=== PATIENT | female | born 1980 | race Caucasian/White ===

== ENCOUNTER → 2019-09-24 13:43 | Outpatient (BNVA) | payer SELFPAY | PROVIDERS: Family Provider Family Medicine; Visit Provider Obstetrics & Gynecology | DX: R10.2 Pelvic and perineal pain (principal) | CPT/HCPCS: 76830 ==

== ENCOUNTER 2019-11-05 10:27 | Outpatient (CLI) | payer SELFPAY ==
--- NOTE | 2019-11-05 10:44 | MR_ITS ---
WS: [id number] MRI OF THE PELVIS WITHOUT AND WITH GADOLINIUM ENHANCEMENT INDICATION: Pelvic mass TECHNIQUE: MR of the pelvis without gadolinium enhancement FINDINGS: Comparison ultrasound September 24, 2019 Complex mixed signal right ovarian lesion measuring 4.5 x 3.2 x 3.3 cm AP by transverse by larisa herron. Associated susceptibility artifact due to calcifications. This appears well circumscribed with T1 hyperintensity consistent with macroscopic internal fat. This suppresses on the fat saturation imagi ng. Findings are most consistent with teratoma. Patient increased risk of ovarian torsion due to the teratoma.Mild mass effect on the uterus from the right ovarian lesion. Tiny amount of surrounding fluid. No significant free fluid in the pelvis. Normal-appearing left adne xa and left ovary with normal follicles. Uterus appears normal. Incidental nabothian cysts. MR/MR pelvis wo/w con 05000 IMPRESSION: 1. Heterogeneous right ovarian lesion measuring 4.5 x 3.2 x 3.3 cm with macros copic fat. Susceptibility artifact consistent with calcifications. 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 Patient at increased risk of torsion du e to the teratoma 2. Mild mass effect on the right aspect of the uterus. 3. Left adnexa appears normal. 4. Incidental nabothian cysts in the cervix.
== END 2019-11-05 10:28 | disposition home or self-care (01) ==
LOC: RADWPI 10:30
PROVIDERS: Family Provider Family Medicine; PCP Family Medicine; Visit Provider Obstetrics & Gynecology
DX: N83.8 Other noninflammatory disorders of ovary, fallopian tube and broad ligament (principal); N88.8 Other specified noninflammatory disorders of cervix uteri
CPT/HCPCS: 72197; A9579

== ENCOUNTER → 2019-11-30 08:24 | Outpatient (BNVA) | payer SELFPAY | PROVIDERS: PCP Family Medicine; Visit Provider Internal Medicine | DX: N83.8 Other noninflammatory disorders of ovary, fallopian tube and broad ligament (principal); N39.0 Urinary tract infection, site not specified | CPT/HCPCS: 80053; 81000; 87635 ==

== ENCOUNTER 2019-12-02 15:48 | Observation (INO) | payer SELFPAY ==
[2019-11-24 10:13] VITALS: BMI 21.2
[2019-11-24 10:35] LABS: OR HCG Qualitative Urine Negative (Negative)
--- NOTE | 2019-11-24 10:43 | ANES.PREANE2 ---
Pre-Anesthetic Assessment Pre-Anesthetic Assessment: Height/Weight: Height 1.57 m Weight 52.617 kg Preop Diagnosis: Chronic pelvic pain, right ovarian mass Proposed Procedure: Operation Date: 11/25/19 10:30 Proposed Procedures p Laparoscopic Assist Vaginal Hystectomy 14088 R10.2 N83.8(Not Applicable) - Malick Guerrero MD Social: Social History: Tobacco (1 ppd ) and No alcohol Pack years: 15 Exam: Pre-Anes Outpt Exam: alert, oriented x 3 and clear to auscultation bilaterally Airway: Submandibular: WNL Cervical ROM: WNL MP: 2 Dentition: Chipped (front teeth chipped) Pulmonary: Pulmonary: None reported CV/HEM: CV/HEM: HTN : : None reported Hepatic: Hepatic: None reported GI: GI: None reported Metabolic: Metabolic: None reported Musc/skel: Musc/skel: OA/DJD (wrist, hands, and feet) Neuropsych: Neuropsych: None reported Anesthetic Plan: ASA status: 2 Anesthesia: Anesthesia Evaluation and General PFSH Anesthesia PFSH: Surgical History History of delivery (~2013) Performed with TUbal ligation History of delivery (~2000) History of tubal ligation (~2013) Family History Mother Hypertension Hyperlipidemia Father Hypertension Hyperlipidemia Grandfather Diabetes Other Cancer Denies family history of CAD (coronary artery disease) Clotting disorder Dementia Psychiatric illness Chronic kidney disease (CKD) Suicide Anesthesia complication Bleeding disorder Family history of premature coronary artery disease Lung disease Stroke Social History Smoking and tobacco status: current every day smoker cigarettes Packs smoked per day: 1 Alcohol intake: never Female Reproductive History: Date of last menstrual period: 11/15/19 Data Anesthesia CBC & Chem 7: 11/24/19 10:30 11/24/19 10:30 Other Labs: Laboratory Results - last 48 hr 11/24/19 10:06 Urine HCG, Qual Negative Cardiac Studies: No Data to Display
[2019-11-24 10:46] LABS: Basophils # 0.1 10^3/uL (0.0-0.1); Basophils % 0.6 %; Eosinophils # 0.1 10^3/uL (0.0-0.8); Eosinophils % 1.8 %; Hematocrit 41.7 % (37.0-47.0); Hemoglobin 13.5 g/dL (11.5-15.3); Lymphocytes % 25.1 %; Mean Corpuscular HGB Conc 32.4 g/dL (30.0-36.0); Mean Corpuscular Hemoglobin 31.7 pg (28.0-34.0); Mean Corpuscular Volume 97.9 fL (81-99); Mean Platelet Volume 10.4 fL (7.4-10.4); Monocytes # 0.5 10^3/uL (0.2-0.9); Neutrophils # 5.24 10^3/uL (1.8-7.7); Nucleated Red Blood Cells % 0 %; Platelet Count 221 10^3/cmm (130-400); Red Blood Count 4.26 10^6/uL (4.1-5.3); Red Cell Distribution Width 13.7 % (12.1-15.1); White Blood Count 7.9 10^3/uL (4.0-10.0)
[2019-11-24 10:54] LABS: Add Urine Microscopic? YES; Bilirubin Urine Neg (NEGATIVE); Blood Urine Neg (Negative); Glucose Urine UA Norm (Normal); Ketones Urine Negative (Negative); Leukocyte Esterase Urine 1+ (Negative); Nitrate Urine Positive (Negative); Protein Urine Neg (Negative); Specific Gravity, Urine 1.015 (1.005-1.030); Urine Appearance SL Hazy (CLEAR); Urine Color Yellow (Yellow); Urobilinogen Urine Norm (Negative)
[2019-11-24 11:03] LABS: Alanine Aminotransferase 9 U/L (0-33); Albumin Level 4.1 g/dL (3.5-5.2); Alkaline Phosphatase 68 IU/L (35-105); Anion Gap 11.6 (5-19); Aspartate Amino Transferase 12 U/L (0-32); Blood Urea Nitrogen 9 mg/dL (6-20); Calcium 8.5 mg/dL (8.5-10.5); Carbon Dioxide 27 mmol/L (22-29); Chloride 101 mmol/L (98-107); Globulin 2.5 g/dL (1.3-4.6); Glomerular Filtration Rate 93.6 mL/min (90-130); Glucose 88 mg/dL (65-115); Osmolality Calculated 275 mOsm/kg (285-295); Potassium 4.6 mmol/L (3.5-5.1); Sodium 135 mmol/L (136-145); Total Bilirubin 0.2 mg/dL (0.15-1.2); Total Protein 6.6 g/dL (6.6-8.7)
[2019-11-24 11:12] LABS: Add Urine Culture? Yes; Bacteria Urine 3+; Mucus Urine 1+; RBC Urine 0-4 /hpf (0-2); WBC Urine 40-55 /hpf (0-5)
--- NOTE | 2019-11-24 13:35 | SUR.PREOP ---
call placed to [facility] regarding this pt's urine results and stated she would print it out and give to dr gavin
--- NOTE | 2019-11-24 13:46 | SUR.PREOP ---
spoke with victoria [facility] and order to do urine culture and patient's sx to be pushed back 1 week,victoria stated she would call pt and scheduling to inform of this spoke with yahaira in lab and stated that urine culture already ordered
[2019-11-24 22:49] LABS: Coronavirus Lab Test PTC Negative
[2019-12-02] VITALS (13 sets, daily range): BP systolic 102–153; BP diastolic 65–102; PULSE 52–90; RESP 15–20; TEMP 36.4–37.2; O2SAT 97–100
[2019-12-02 09:27] LABS: OR HCG Qualitative Urine Negative (Negative)
[2019-12-02] MEDS: sodium chloride 0.9% 1,000 ML 30 ML IV (09:42)
[2019-12-02] MEDS: scopolamine 1.5 Patch 1 PATCH TRANSDERMA (09:43)
[2019-12-02] MEDS: atenolol 50 mg Tablet PO (09:57)
--- NOTE | 2019-12-02 10:55 | P.ANESUD_ITS ---
Pre-Anesthetic Update Pre-Anesthetic Assessment: Date of Surgery/Procedure: 12/02/19 Preop Cari gnosis: Chronic pelvic pain, right ovarian mass Proposed Procedure: Operation Date: 12/02/19 10:45 Proposed Procedures p Laparoscopic Assist Vaginal Hystectomy 97012 R10.2 N83.8(Not Applicable) - Malick Guerrero MD Any changes to Pre-Anesthetic Assessment?: No Last Intake: Intake Last Liquid Date 12/01/19 Last Liquid Time 22:00 Last Solid Date 12/01/19 Last Solid Time 22:00 Labs Last 48hrs: Laboratory Results - last 48 hr 12/02/19 09:25 Urine HCG, Qual Negative Vitals: Temperature 97.6 F 12/02/19 09:28 Temperature Source Temporal Artery S can 12/02/19 09:28 Pulse Rate 90 12/02/19 09:28 Respiratory Rate 18 12/02/19 09:28 Blood Pressure 116/77 12/02/19 10:17 Blood Pressure Wen n 90 12/02/19 10:17 Pulse Oximetry 100 12/02/19 09:28 Oxygen Delivery Me thod 12/02/19 09:30 Exam: Pre-Anes Outpt Exam: alert, oriented x 3, clear to auscultation bilaterally and regular rate & rhythm Other Pertinent Information: Other Pertinent Information: took atenolol this morning Cardiac Studies: No Data to Display
--- NOTE | 2019-12-02 11:09 | W.PM.OPSUD ---
Surgery/Procedure H&P Update DATE OF PROCEDURE: December 02, 2019 DATE H&P PERFORMED: 11/23/19 H&P UPDATE INFORMATION: I have reviewed H&P completed within last 30 days, I have examined patient prior to procedure and No changes to prior documentation PREOP DIAGNOSIS: Chronic pelvic pain, right ovarian mass PLANNED PROCEDURE: Operation Date: 12/02/19 10:45 Proposed Procedures p Laparoscopic Assist Vaginal Hystectomy 62451 R10.2 N83.8(Not Applicable) - Malick Guerrero MD
[2019-12-02] MEDS: ceFOXitin 2,000 MG in sodium chloride 0.9% (plus) 50 ML 100 MG IV (13:25)
[2019-12-02] MEDS: estrogens Conjugated Cream 30 gm 1 APPLIC VAGINAL (15:39)
--- NOTE | 2019-12-02 15:44 | PM.OP ---
Operative Report Date of procedure: December 02, 2019 Pre-op Diagnosis: Chronic pelvic pain, right ovarian mass Post-op diagnosis: same Procedure Done: Laparoscopic assisted vaginal hysterectomy with right oophorectomy. Lysis of adhesions. Cystoscopy Specimens removed/disposition: Right ovary and uterus Surgeon: Malick Guerrero Anesthesia: General Estimated blood loss (mL): 200 IV fluids (mL): 1,300 Urine output (mL): 200 Complications: None Findings: Pelvic adhesions and right ovarian mass Condition: stable Disposition: PACU Brief History: 39-year-old female with history of chronic pelvic pain unresponsive to medical management with a right ovarian mass, and history of endometriosis. Procedure: After discussing informed consent again, the patient was taken to the operating room where general anesthesia was administered. She was placed in the dorsal lithotomy position in low stirrups and prepped and draped in sterile fashion. Pre-Procedure Time-Out verifying the correct patient identity, correct procedure verified with consent, correct site and side, correct patient position, availability of correct implants and any special equipment or requirements was performed and acknowledge by the OR team. After the initial preparation, the procedure commenced at the vagina. With a Bookwalter vaginal retractor was place to visualize the cervix; the anterior and posterior lips of the cervix were separately grasped and clamped with ana tooth tenaculum. The cervix was then dilated to a #6 hegar dilator and a uterine manipulator within the uterine cavity for manipulation purposes being careful not to puncture the uterus. A Villalta catheter was placed in the bladder. Attention was then turned to the abdomen. The umbilical region was infiltrated with 0.5% Marcaine with epinephrine. Following infiltration with Marcaine, an intraumbilical incision was made and the Verres needle was gently advanced taking care to feel for the typical sensation of penetrating the peritoneum. With CO2 infiltration, an opening pressure of 5 mmHg was noted, and following this, a pneumoperitoneum of 12 mmHg was created. A 5 mm Optiview trocar was then passed through the same incision under direct visualization. Trocar was removed and the laparoscope was then inserted through the trocar sleeve. Visualization of the peritoneal cavity was then obtained and a brief inspection did not reveal any signs of complications from entry. Under direct observation, a second incision was made 3 cm above the symphysis pubis, and a 5 mm trocar and sleeve were admitted into the abdomen under direct, laparoscopic visualization, 5mm flank ports were then placed laterally on left sides taking care to respect anatomical landmarks and vessels without complication. Once the placement of the ports was complete, the actual laparoscopic procedure began. Beginning on the right side and distally along the length of the fallopian tube, the mesosalpinx was exposed by lifting the tube and ovary up towards the anterior abdominal wall. The mesosalpinx was then sequentially, clamped, ligated, and cut using the Enseal device working alongside the length of the tube and towards the cornua. Once the level of the cornua was reached the tube was cut. Attention was then turned to the other side. The same process was repeated on the left, sequentially clamping, sealing and cutting the mesosalpinx being sure to not injure the adjacent ovarian tissue or other surrounding structures. The round ligament was then clamped, sealed/ligated and cut with the Enseal device. Following this, the anterior leaf of the broad ligament was then taken down on the left side, dissecting down towards the peritoneal reflection at the base of the bladder and adjacent to the cervix. The same process was then repeated on the left side such that both sides met and the anterior leaflet had been appropriately skeletonized. To ensure excellent hemostasis prior to further manipulation, the pedicles of the cardinal ligament was then clamped sealed/ligated and divided on each side using the Enseal device. Attention was then turned to the vaginal aspect of the surgery. The Villalta catheter was clamped. A Bookwalter vaginal retractor was placed in the vagina and the uterine manipulator was removed. The tenaculum was repositioned anteriorly and posteriorly. A circumferential incision was made at the cervical vaginal reflection using cautery. This was undermined first anteriorly and a colpotomy made without difficulty. This was then repeated posteriorly and a similar colpotomy made. Christopher retractors were then placed into each of these incisions. Beginning first on the patient's left, the uterosacral and cardinal ligament was clamped, sealed, divided, and suture ligated. Two bites were required to reach the previous dissection margin of the left side. The same process was then repeated on the patient's right hand side, at which point, the specimen was completely freed. Once the sutures had been placed and the pedicles secured, the uterus along with both tubes and right ovary were removed transvaginally without difficulty. All pedicles were inspected and hemostasis was confirmed. The vaginal vault was then oversewn with a running locking Vicryl suture, securing first the posterior edge of the cuff followed by the anterior edge. Good hemostasis was obtained. Two [id number] sutures were then placed across the vaginal vault to close it. The patient was given IV indigo carmine. Once these had been tied off, all sutures were trimmed; a wet sponge was placed in the vagina to pack it off while attention was again turned back to the abdomen. All instruments were removed from the vagina at this time. Then the Villalta catheter was removed and cystoscope was inserted. The bladder was filled with sterile water. Complete evaluation of the bladder mucosa was performed noting no lacerations, dimpling, tears, bleeding of the mucosa or muscular layers. Both ureteral orifices were identified. Prompt excretion of urine from both ureteral orifices was noted. Cystoscope was withdrawn. Villalta catheter was then placed yielding clear blue/hu urine. Using the laparoscopic irrigation device, the abdomen was carefully irrigated and inspected to ensure complete hemostasis. Once the entire abdomen was inspected, the water was suctioned and the instruments carefully removed. The ports were then removed under direct visualization being sure to note hemostasis of the port sites on removal. The incisions were then closed with interrupted Monocryl sutures and Dermabond. The patient tolerated the procedure well, anesthesia reversed, and the patient was taken to the recovery room in stable condition. All sponges, instruments, and sharps were counted and correct x 3.
[2019-12-02] MEDS: fentaNYL 50 mcg/mL INJ 2mL IVP ×3 (16:00→18:11)
[2019-12-02] MEDS: morphine 4 mg/mL SDV 1 mL 2 MG IVP (16:12)
--- NOTE | 2019-12-02 16:20 | PM.PACU ---
PACU note Post-Anesthesia Exam: awake and vital signs stable Disposition: admitted
[2019-12-02] MEDS: dextrose 5%-lactated ringers 1,000 ML 125 ML IV (17:19)
[2019-12-02] MEDS: ketorolac 30 mg/mL INJ IVP ×2 (17:19→22:15)
[2019-12-03 00:16] VITALS: RESP 16
[2019-12-03] MEDS: fentaNYL 50 mcg/mL INJ 2mL IVP (00:16)
[2019-12-03 05:00] VITALS: BP 123/72; PULSE 81; RESP 16; TEMP 37.2; O2SAT 96
[2019-12-03 06:00] VITALS: PULSE 90; RESP 18; O2SAT 97
[2019-12-03 06:21] LABS: Hematocrit 25.7 % (37.0-47.0); Hemoglobin 8.2 g/dL (11.5-15.3); Mean Corpuscular HGB Conc 31.9 g/dL (30.0-36.0); Mean Corpuscular Hemoglobin 31.3 pg (28.0-34.0); Mean Corpuscular Volume 98.1 fL (81-99); Mean Platelet Volume 11.3 fL (7.4-10.4); Platelet Count 336 10^3/cmm (130-400); Red Blood Count 2.62 10^6/uL (4.1-5.3); Red Cell Distribution Width 13.6 % (12.1-15.1); White Blood Count 16.3 10^3/uL (4.0-10.0)
[2019-12-03] MEDS: docusate sodium 100 mg Capsule PO (08:12)
[2019-12-03] MEDS: HYDROcodone-acetaminophen 5-325 mg Tablet PO (08:12)
--- NOTE | 2019-12-03 08:19 | ANE.PACU2 ---
Inpatient post-anesthesia follow up: Airway intact: Yes Vital signs: Temperature 99.0 F Pulse Rate 90 Respiratory Rate 18 Blood Pressure 123/72 Pulse Oximetry 97 Oxygen Delivery Me thod Room Air Oxygen Flow Rate Fraction of Inspir ed Oxygen Hydration adequate: Yes Nausea and vomiting: No Pain level: 5 Mental status: Baseline
[2019-12-03 10:32] VITALS: BP 122/70; PULSE 76; RESP 15
--- NOTE | 2019-12-03 12:31 | P.DS_ITS ---
Discharge Providers CAMERA REPAIRMAN Date of Admission: 12/02/19 15:48 Date of Discharge: 12/03/19 Attending Provider at Admission: Malick Guerrero MD Attending Provider at Discharge: Malick Guerrero MD Primary Care Provider: Chance Cota Reason for Visit Reason for Visit: lap assist vaginal hysterctomy Hospital Course Hospital Course: 39 year old female with a history of chronic pelvic pain and endometriosis unresponsive to medical management. A laparoscopic Assisted vaginal Hysterectomy was performed without complications. Overnight observation uneventful. She is afebrile hemodynamically stable. Tolerating diet well. Ambulating without difficulty. Postop precautions given. Physical Exam Narrative: EXAM NARRATIVE: GA: Alert and oriented ?3. HEENT: WNL. Heart: Regular rate and rhythm. Lungs: Clear to auscultation bilaterally. Abdomen: Bowel sounds present, nontender, minimal tenderness, incision clean and dry, no redness, pain or edema. AWS SOLUTION ARCHITECT: No bleeding. Extremities: No edema, no cyanosis, no calves pain. Urinary Catheter Management^: Villalta: Cath Placed During This Visit: yes, but has since been removed by the nurse Reason for Continuing Indwelling Catheter: Decision to DC Catheter Urinary Catheter Date of Insertion: 12/02/19 Urinary Catheter Time of Insertion: 13:30 Date Urinary Catheter Removed: 12/03/19 Time Urinary Catheter Discontinued: 08:05 Discharge Data Data Completed and Pending: Pending at discharge Category Date Time Status ES surgery / GI i mages Routine Exams 12/02/19 13:01 Taken Pathology: Surgic al [PTH] Routine Pth 12/02/19 16:01 Received Labs from last 24 hours 12/03/19 05:10 WBC 16.3 H RBC 2.62 L Hgb 8.2 L Hct 25.7 L MCV 98.1 MCH 31.3 MCHC 31.9 RDW 13.6 Plt Count 336 MPV 11.3 H Vitals: Last Vital Signs Temp 99.0 F 12/03/19 05:00 Pulse 76 12/03/19 10:32 Resp 15 12/03/19 10:32 BP 122/70 12/03/19 10:32 Pulse Ox 97 12/03/19 06:00 Discharge Plan Discharge Patient Disposition: Home Condition: Stable Prescriptions: [place] 5-325 mg tablet 1 tab PO Q4H PRN (Reason: pain) Qty: 30 RF: 0 ferrous sulfate 325 mg (65 mg iron) tablet 325 mg PO BID Qty: 60 RF: 0 Continued ibuprofen 800 mg tablet 800 mg PO Q6H PRN (Reason: Pain) RF: 0 atenolol 50 mg tablet 50 mg PO DAILY RF: 0 tramadol 50 mg tablet 50 mg PO Q6H PRN (Reason: Pain) RF: 0 Discharge Orders: Discharge Order (Routine); Ordered 12/03/19 Ordered By: Malick Guerrero Referrals: Malick Guerrero MD [Physician] - 2 weeks Discharge Diet: As Directed Discharge Activity: Increase activity as tolerated Patient Instructions: Laparoscopically Assisted Vaginal Hysterectomy (DC), OB Discharge Report, OB Laproscopic Surgery - [facility], OB Anesthesia Instructions, OB Food/Drug Interaction Guide Activity Restrictions/Additional Instructions: Pelvic rest for 6 weeks (no sex, no tampons, no vaginal douches). Return to the emergency room if any fever, increased bleeding or pain. 1. Please call [facility] [place] [facility] on next working day to make your post-operative appointment in 2 weeks. 2. Please stay home until you come back to the clinic on first post-operative check up. 3. Please follow instructions on your medications CAREFULLY. 4. If you have abdominal incision, do not cover it unless dressing is necessary because of drainage. OK to shower, but avoid bath. Leave steri-strips until they fall off. If they are still on one week after surgery, you may remove them. 5. If you had vaginal surgery, your doctor may instuct you to take SITZ bath. 6. Yellow, blood tinged odorous vaginal discharge is usually normal after hyste rectomy or vaginal surgeries. 7. No sexual intercourse, tampons, or douches until you are completely released from the post-operative care. 8. Avoid constipation by eating right and maybe using some Metamucil or Milk of Magnesia. 9. All presciption refills are given during the working hours. Please do no wait till it runs out. Call the clinic at [phone] before your medication runs out. The clinic will get in touch with your doctor to prescribe medications if necessary. 10. Please remain within 40 mile radius from our hospital because emergencies do happen now and then during the post-operative period. 11. If you have stairs at home, take one step at a time slowly and minimize the number of trips. It helps to stay in one floor for the next few days. No lifting except what you can lift by one hand until you are released from the post-operative care. 12. Driving is discouraged until you are well healed. It may be 3-4 weeks before you feel strong enough to drive. You should be able to turn and look throught the rear window without pain and you should be able to push the brake pedal very hard without pain before you drive. No fast rules, but SAFETY should be your primary concern. DO NOT drive if you are on sedating medications such as narcotics. 13. Call the clinic (during working hours) to make urgent appointment or go to the Emergency room, if any of the following occurs: i. Vaginal bleeding becomes heavy, more than a period. ii. Incision becomes red and sore, or drains pus. iii. Your temperature is over 100.4 or you have chill. iv. IV site becomes red and swollen (a little ``knot?? is usually OK) v. Persistent nausea and vomiting vi. Persistent constipation or diarrhea vii. Rash or allergic reaction to medications. Discharge Attestations CAMERA REPAIRMAN Time Spent in Discharge Care*: greater than 30 min Specific Discharge Activities: Specific discharge activities: educating patient Coding Level of Care Code Acute Energy Scheduler for Michi Bo
[2019-12-03 13:24] VITALS: BP 122/70; PULSE 76; RESP 15
== END 2019-12-03 13:20 | disposition home or self-care (01) ==
LOC: OBGYN 15:49
PROVIDERS: Anesthesiology; Admitting Provider Obstetrics & Gynecology; PCP Family Medicine; Visit Provider Obstetrics & Gynecology
PROC: 0UT9FZZ Resection of Uterus, Via Natural or Artificial Opening With Percutaneous Endoscopic Assistance (ICD-10-PCS; principal; 2019-12-02 10:45)
DX: D27.0 Benign neoplasm of right ovary (principal); K66.0 Peritoneal adhesions (postprocedural) (postinfection); N85.01 Benign endometrial hyperplasia; I10 Essential (primary) hypertension; F17.210 Nicotine dependence, cigarettes, uncomplicated
CPT/HCPCS: 58552; 12345; 36415; 80053; 81001; 81025; 84703; 85025; 85027; 86850; 86900; 87077; 87086; 87186; 87635; 88307; 96360; 96361; 96375; G0378; J0694; J1100; J1885; J2270; J2405; J2550; J2704; J2710; J3010; J3490; J7030

== ENCOUNTER → 2019-12-11 09:25 | Outpatient (BNVA) | payer SELFPAY | PROVIDERS: Family Provider Family Medicine; PCP Family Medicine; Visit Provider Obstetrics & Gynecology | DX: R30.0 Dysuria (principal); R82.2 Biliuria | CPT/HCPCS: 80076; 81000; 85025; 86705; 86706; 86709; 86803; 87340 ==

== ENCOUNTER 2019-12-17 14:25 | Observation (INO) | payer SELFPAY ==
[2019-12-17] VITALS (16 sets, daily range): BP systolic 103–127; BP diastolic 63–85; PULSE 90–118; RESP 14–18; TEMP 36.3–37.2; O2SAT 96–100; BMI 21.7
--- NOTE | 2019-12-17 15:07 | ED_ITS ---
HPI - Recheck/Abnormal Lab/Rx General: Chief Complaint: Recheck/Abnormal Lab/Rx Stated Complaint: LOW BLOOD COUNT 7 Time Seen by Provider: 12/17/19 14:49 History of Present Illness: HPI narrative: 39-year-old female patient presents to the emergency department with low hemoglobin. 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 She was encouraged to come to the hospital for blood transfusion. She reports increased bruising to the lower abdomen, recent hysterectomy 12/02/2019. She reports bruising has increased past 7 days. Reports was seen for follow-up. She continues to have slight vaginal bleeding but is not heavy. Reports only occurs when she wipes. She denies fever chills. She is complaining of significant tiredness and fatigue. MD complaint: abnormal lab Returns today for: called because of abnormal lab/test Associated symptoms: malaise Review of Systems General: Reports: 10 or more systems reviewed and unremarkable except in HPI and below Const: Denies: fever(s), chills or diaphoresis Eyes: Denies: blurry vision or eye redness ENMT: Denies: throat pain, dental pain or disequilibrium Card: Denies: chest pain, palpitations or irregular heart rhythm Resp: Denies: dyspnea, productive cough, non-productive cough or wheezing GI: Reports: abdominal pain; Denies: nausea or vomiting : Reports: difficulty voiding, dribbling, hematuria and vaginal bleeding (Slight per patient); Denies: dysuria Musc: Denies: back pain Skin/Breast: Denies: rash or pruritus Neuro: Denies: headache(s), weakness in extremities or behavioral changes Obinna/Lymph: Denies: easy bruising PFSH ED PFSH: Medical History (Updated 12/17/19 @ 17:10 by MILLA Ayala) Aftercare following surgery of the genitourinary system Surgical History History of delivery (~2013) Performed with TUbal ligation History of delivery (~2000) History of tubal ligation (~2013) Family History Mother Hypertension Hyperlipidemia Father Hypertension Hyperlipidemia Grandfather Diabetes Other Cancer Denies family history of CAD (coronary artery disease) Clotting disorder Dementia Psychiatric illness Chronic kidney disease (CKD) Suicide Anesthesia complication Bleeding disorder Family history of premature coronary artery disease Lung disease Stroke Social History (Updated 12/17/19 @ 13:12 by Terri Maynard RN) Smoking and tobacco status: current every day smoker cigarettes Packs smoked per day: 0.5 Alcohol intake: never Female Reproductive History: Date of last menstrual period: 11/15/19 Physical Exam Const: COMMON NORMALS: no acute distress, patient oriented x3 and alert GENERAL APPEARANCE: cooperative, comfortable, well kempt and frail appearing ORIENTATION/CONSCIOUSNESS: Yes awake, Yes oriented to person and Yes oriented to place HENMT: COMMON NORMALS: normocephalic, Normal external nose present and moist oral mucous membranes HEAD & SCALP: normocephalic NOSE: Normal external nose present Eye: COMMON NORMALS: Equal, round and reactive pupils present and EOMs intact bilaterally GENERAL EYE: appearance normal, both eyes and all related structures PUPIL: Yes Equal, round and reactive pupils present Neck/C-Spine: COMMON NORMALS: full ROM and no lymphadenopathy GENERAL: Yes normal visual inspection and Yes trachea midline CERVICAL SPINE: Yes cervical ROM normal and Yes normal cervical lordosis Lymph: LYMPHATIC: no lymphadenopathy noted Chest: COMMONS NORMALS: normal inspection of the chest Resp: COMMON NORMALS: normal respiratory effort and clear to auscultation bilaterally AUSCULTATION: clear to auscultation bilaterally Cardio: COMMON NORMALS: regular rhythm, S1 normal heart sound present, S2 normal heart sound present and Peripheral pulses 2+ throughout RHYTHM: regular rhythm HEART SOUNDS: S1 normal heart sound present and S2 normal he art sound present PERIPHERAL PULSES: Peripheral pulses 2+ throughout GI: COMMON NORMALS: Soft to palpation INSPECTION: Yes abdominal wall ecchymosis (Lower pubic central area radiating to the pubis mons, continues to the left lower quadrant/flank) and Yes incision (Clean dry and intact, no ecchymosis or drainage) AUSCULTATION: Yes normoactive bowel sounds PALPATION: Yes Soft to palpation and Yes Tenderness to palpation present (GI) Details: LLQ and RLQ : BLADDER/KIDNEY EXAM: Yes CVA tenderness Back/Pelvis: COMMON NORMALS: thoracic and lumbar spine normal to inspection GENERAL BACK: Yes CVA tenderness CVA tenderness: left and Yes ecchymosis (left) Extremity: COMMON NORMALS: normal to inspection and capillary refill normal Neuro: COMMON NORMALS: patient oriented x3 and no focal motor deficits SENSORIUM/ORIENTATION: Yes alert, Yes oriented to person and Yes oriented to place Psych: COMMON NORMALS: mental status grossly normal, Normal thought process present and cooperative APPEARANCE: Yes well kempt ACTIVITY/MOTOR BEHAVIOR: Yes appropriate eye contact THOUGHT PROCESS: Normal thought process present Skin: COMMON NORMALS: no rashes or lesions noted and turgor normal GENERAL SKIN EXAM: no rashes or lesions noted and turgor normal Course ED course: 39-year-old female patient was evaluated in the emergency department due to bruising to the lower abdominal wall with anemia status post hysterectomy on 12/02/2019. CT scan of abdomen pelvis revealed postoperative fluid collection in the pelvis consistent with hematoma/abscess or infected hematoma. Discussion with Dr. Guerrero including serology and CT results discussed. Discussed with patient findings of CT, she agrees to follow-up with Dr. Guerrero for transfusion and OB. Questions were answered. Consultations: Consultation #1: Dr Guerrero, serology results an CT scan abd/pelvis d/w Dr Guerrero - advised for patient to go to OB for 2 UPRBSc, reports probable hematoma in the pelvis. Time: 17:00 Vital Signs: Vital signs: Vital Signs Temperature 97.3 F L 12/17/19 14:28 Pulse Rate 118 H 12/17/19 14:28 Respiratory Rate 18 12/17/19 14:28 Blood Pressure 115/76 12/17/19 14:28 Pulse Oximetry 99 12/17/19 15:14 MDM - Recheck/Abnormal Lab/Rx Lab Data: Labs: Lab Results 12/17/19 12/17/19 12/17/19 Range/Units 14:50 15:00 15:00 WBC 9.7 (4.0-10.0) 10^3/ uL RBC 2.92 L (4.1-5.3) 10^6/u L Hgb 8.6 L (11.5-15.3) g/dL Hct 29.4 L (37.0-47.0) % MCV 100.7 H (81-99) fL MCH 29.5 (28.0-34.0) pg MCHC 29.3 L (30.0-36.0) g/dL RDW 14.9 (12.1-15.1) % Plt Count 537 H (130-400) 10^3/c mm MPV 9.3 (7.4-10.4) fL Neut % (Auto) 81.6 % Lymph % (Auto) 12.0 % Cedar % (Auto) 5.3 % Eos % (Auto) 0.4 % Baso % (Auto) 0.4 % Neut # (Auto) 7.92 H (1.8-7.7) 10^3/u L Lymph # (Auto) 1.2 (0.8-4.8) 10^3/u L Cedar # (Auto) 0.5 (0.2-0.9) 10^3/u L Eos # (Auto) 0.0 (0.0-0.8) 10^3/u L Baso # (Auto) 0.0 (0.0-0.1) 10^3/u L Nucleated RBC % (a uto) 0 % Nucleated RBCs # 0.0 /100WBC PT 14.00 (12.1-14.9) SECO NDS INR 1.05 (0.8-1.2) Sodium (136-145) mmol/L Potassium (3.5-5.1) mmol/L Chloride (98-107) mmol/L Carbon Dioxide (22-29) mmol/L Anion Gap (5-19) BUN (6-20) mg/dL Creatinine (0.5-0.9) mg/dL GFR Calculation (90-130) mL/min Glucose (65-115) mg/dL Calculated Osmolal ity (285-295) mOsm/k g Calcium (8.5-10.5) mg/dL Total Bilirubin (0.15-1.2) mg/dL AST (0-32) U/L ALT (0-33) U/L Alkaline Phosphata se (35-105) IU/L Total Protein (6.6-8.7) g/dL Albumin (3.5-5.2) g/dL Globulin (1.3-4.6) g/dL Lipase (13-60) U/L Urine Color Yellow (Yellow) Urine Appearance Clear (CLEAR) Urine pH 7 (5-7) Ur Specific Gravit y 1.010 (1.005-1.030) Urine Protein Neg (Negative) Urine Glucose (UA) Norm (Normal) Urine Ketones Negative (Negative) Urine Blood 2+ H (Negative) Urine Nitrate Negative (Negative) Urine Bilirubin Neg (Negative) Urine Urobilinogen 4 H (Negative) mg/dL Ur Leukocyte Michelle ase Negative (Negative) Urine RBC 0-4 H (0-2) /hpf Urine WBC None (0-5) /hpf Ur Squamous Epith Cells 0-4 H (0-5) /hpf Amorphous Sediment Not Reportable Urine Bacteria Trace (NONE) /hpf Blood Type Rho(D) Type Antibody Screen 12/17/19 12/17/19 Range/Units 15:00 15:00 WBC (4.0-10.0) 10^3/ uL RBC (4.1-5.3) 10^6/u L Hgb (11.5-15.3) g/dL Hct (37.0-47.0) % MCV (81-99) fL MCH (28.0-34.0) pg MCHC (30.0-36.0) g/dL RDW (12.1-15.1) % Plt Count (130-400) 10^3/c mm MPV (7.4-10.4) fL Neut % (Auto) % Lymph % (Auto) % Cedar % (Auto) % Eos % (Auto) % Baso % (Auto) % Neut # (Auto) (1.8-7.7) 10^3/u L Lymph # (Auto) (0.8-4.8) 10^3/u L Cedar # (Auto) (0.2-0.9) 10^3/u L Eos # (Auto) (0.0-0.8) 10^3/u L Baso # (Auto) (0.0-0.1) 10^3/u L Nucleated RBC % (a uto) % Nucleated RBCs # /100WBC PT (12.1-14.9) SECO NDS INR (0.8-1.2) Sodium 133 L (136-145) mmol/L Potassium 4.1 (3.5-5.1) mmol/L Chloride 97 L (98-107) mmol/L Carbon Dioxide 26 (22-29) mmol/L Anion Gap 14.1 (5-19) BUN 6 (6-20) mg/dL Creatinine 0.5 (0.5-0.9) mg/dL GFR Calculation 138.1 H (90-130) mL/min Glucose 104 (65-115) mg/dL Calculated Osmolal ity 274 L (285-295) mOsm/k g Calcium 9.3 (8.5-10.5) mg/dL Total Bilirubin 0.5 (0.15-1.2) mg/dL AST 10 (0-32) U/L ALT 7 (0-33) U/L Alkaline Phosphata se 131 H (35-105) IU/L Total Protein 7.0 (6.6-8.7) g/dL Albumin 3.7 (3.5-5.2) g/dL Globulin 3.3 (1.3-4.6) g/dL Lipase 11 L (13-60) U/L Urine Color (Yellow) Urine Appearance (CLEAR) Urine pH (5-7) Ur Specific Gravit y (1.005-1.030) Urine Protein (Negative) Urine Glucose (UA) (Normal) Urine Ketones (Negative) Urine Blood (Negative) Urine Nitrate (Negative) Urine Bilirubin (Negative) Urine Urobilinogen (Negative) mg/dL Ur Leukocyte Michelle ase (Negative) Urine RBC (0-2) /hpf Urine WBC (0-5) /hpf Ur Squamous Epith Cells (0-5) /hpf Amorphous Sediment Urine Bacteria (NONE) /hpf Blood Type O Negative Rho(D) Type Negative Antibody Screen Negative Imaging Data^: CT Abd/Pel: Radiologist's impression: [place] [address] CT Scan Report Signed with Addenda Patient: Liberty Briones Unit #: [id number] : 1980 Age/Sex: 39 / F ADM Date: 12/17/19 Loc: ER Room/Bed: Attending Dr: Ordering Provider/Ordering MD: Deb Quinonez Date of Service: 12/17/19 Procedure(s): CT chest abd pel w con* Accession Number(s): [id number] Report Number: [id number]/CT chest abd pel w con* Disregard this report. CT chest was sent twice. Radiation Dose CTDIVOL = (mGy): DLP = 291.1 (mGy-cm) Addendum Dictated By: Jelani Vilchis MD Addendum Signed By: Jelani Vilchis MD Signed Date/Time: 12/17/19 826 Addendum Cosigned By: PROCEDURE INFORMATION: Exam: CT Abdomen And Pelvis With Contrast Exam date and time: 12/17/2019 3:54 PM Age: 39 years old Clinical indication: Abdominal tenderness and other: Bleeding; Dyspnea; Prior surgery; Surgery type: Tubal, hysto, vaginal bleeding, blood in urine; Patient HX: Hyst on dec 01 TECHNIQUE: Imaging protocol: Computed tomography of the abdomen and pelvis with intravenous contrast. Radiation optimization: All CT scans at this facility use at least one of these dose optimization techniques: automated exposure control; mA and/or kV adjustment per patient size (includes targeted exams where dose is matched to clinical indication); or iterative reconstruction. Contrast material: OMNI 300; Contrast volume: 75 ml; Contrast route: INTRAVENOUS (IV); COMPARISON: MR pelvis wo/w con [id number] 11/05/2019 10:54 AM RADIATION DOSE METRICS: Total DLP (mGy-cm): 305.87 FINDINGS: Liver: Normal. No mass. Gallbladder and bile ducts: Normal. No calcified stones. No ductal dilation. Pancreas: Normal. No ductal dilation. Spleen: Normal. No splenomegaly. Adrenals: Normal. No mass. Kidneys and ureters: Normal. No hydronephrosis. Stomach and bowel: Unremarkable. No obstruction. No mucosal thickening. Appendix: No evidence of appendicitis. Intraperitoneal space: Peritoneal fat inflammation in the mid and lower abdomen and pelvis most consistent with peritonitis. Vasculature: Unremarkable. No abdominal aortic aneurysm. Lymph nodes: Unremarkable. No enlarged lymph nodes. Bladder: Unremarkable as visualized. Reproductive: Absent uterus consistent with recent hysterectomy. Bones/joints: Unremarkable. No acute fracture. Soft tissues: 9.3 x 7.5 x 4.5 cm loculated postoperative fluid collection in the pelvis consistent with hematoma and or abscess and/or infected hematoma. CT/CT chest abd pel w con* IMPRESSION: 1. 9.3 x 7.5 x 4.5 cm loculated postoperative fluid collection in the pelvis consistent with hematoma and or abscess and/or infected hematoma. 2. Absent uterus consistent with recent hysterectomy. 3. Peritoneal fat inflammation in the mid and lower abdomen and pelvis most consistent with peritonitis. Radiation Dose CTDIVOL = (mGy): DLP = 305.87 (mGy-cm) Dictated By: Jelani Vilchis MD Signed By: Jelani Vilchis MD Signed Date/Time: 12/17/191653 DD/ 51 Discharge Plan Discharge Patient Disposition: Home Clinical Impression: Abdominal pain in female Anemia Qualifiers: Anemia type: other cause Other causes of anemia: acute posthemorrhagic Qualified Code(s): D62 - Acute posthemorrhagic anemia Condition: Stable Prescriptions: No Action atenolol 50 mg tablet 50 mg PO DAILY RF: 0 tramadol 50 mg tablet 50 mg PO Q6H PRN (Reason: Pain) RF: 0 hydrocodone-acetaminophen 5-325 mg tablet 1 tab PO Q4H PRN (Reason: Pain) RF: 0 alprazolam 0.25 mg tablet 0.125 - 0.25 mg PO TID PRN (Reason: unknown) RF: 0 ferrous sulfate 325 mg (65 mg iron) tablet 65 mg PO BID RF: 0 ibuprofen 200 mg Tablet 600 - 800 mg PO PRN RF: 0 Discharge Orders: Discharge Order (Routine); Ordered 12/17/19 Ordered By: Deb Quinonez Referrals: Chance Cota [Primary Care Provider] - Discharge Diet: Usual diet Discharge Activity: Resume usual activity Patient Instructions: Abdominal Pain (ED), Anemia (ED) Activity Restrictions/Additional Instructions: Here to go to OB and received 2 units of packed red blood cells for your anemia per Dr. Guerrero Return to the emergency department if you develop worsening bruising to the lower abdomen, increased abdominal pain, blood in your stool, feeling of passing out Take it easy when you are at home, follow the postoperative hysterectomy instructions as provided by Dr. Guerrero. Discharge Date/Time: 12/17/19 17:22 Coding Level of Care Code ED [employer] for Chg Fwd Exam Comprehensive
--- NOTE | 2019-12-17 15:14 | CTR_ITS ---
PROCEDURE INFORMATION: Exam: CT Abdomen And Pelvis With Contrast Exam date and time: 12/17/2019 3:54 PM Age: 39 years old Clinical indication: Abdominal tenderness and other: Bleeding; Dyspnea; Prior surgery; Surgery type: Tubal, hysto, vaginal bleeding, blood in urine; Patient HX: Hyst on dec 01 TECHNIQUE: Imaging protocol: Computed tomography of the abdomen and pelvis with intravenous contrast. Radiation optimization: All CT scans at this facility use at least one of these dose optimization techniques: automated exposure control; mA and/or kV adjustment per patient size (includes targeted exams where dose is matched to clinical indication); or iterative reconstruction. Contrast material: OMNI 300; Contrast volume: 75 ml; Contrast route: INTRAVENOUS (IV); COMPARISON: MR pelvis wo/w con [id number] 11/05/2019 10:54 AM RADIATION DOSE METRICS: Total DLP (mGy-cm): 305.87 FINDINGS: Liver: Normal. No mass. Gallbladder and bile ducts: Normal. No calcified stones. No ductal dilation. Pancreas: Normal. No ductal dilation. Spleen: Normal. No splenomegaly. Adrenals: Normal. No mass. Kidneys and ureters: Normal. No hydronephrosis. Stomach and bowel: Unremarkable. No obstruction. No mucosal thickening. Appendix: No evidence of appendicitis. Intraperitoneal space: Peritoneal fat inflammation in the mid and lower abdomen and pelvis most consistent with peritonitis. Vasculature: Unremarkable. No abdominal aortic aneurysm. Lymph nodes: Unremarkable. No enlarged lymph nodes. Bladder: Unremarkable as visualized. Reproductive: Absent uterus consistent with recent hysterectomy. Bones/joints: Unremarkable. No acute fracture. Soft tissues: 9.3 x 7.5 x 4.5 cm loculated postoperative fluid collection in the pelvis consistent with hematoma and or abscess and/or infected hematoma. CT/CT chest abd pel w con* IMPRESSION: 1. 9.3 x 7.5 x 4.5 cm loculated postoperative fluid collection in the pelvis consistent with hematoma and or abscess and/or infected hematoma. 2. Absent uterus consistent with recent hysterectomy. 3. Peritoneal fat inflammation in the mid and lower abdomen and pelvis most consistent with peritonitis. Radiation Dose CTDIVOL = (mGy): DLP = 305.87 (mGy-cm)
[2019-12-17] MEDS: sodium chloride 0.9% 500 ML 999 ML IV (15:17)
[2019-12-17] MEDS: HYDROcodone-acetaminophen 5-325 mg Tablet 1 TAB PO ×2 (15:19→21:44)
[2019-12-17 15:23] LABS: Basophils % 0.4 %; Eosinophils % 0.4 %; Hematocrit 29.4 % (37.0-47.0); Hemoglobin 8.6 g/dL (11.5-15.3); Lymphocytes # 1.2 10^3/uL (0.8-4.8); Mean Corpuscular HGB Conc 29.3 g/dL (30.0-36.0); Mean Corpuscular Hemoglobin 29.5 pg (28.0-34.0); Mean Corpuscular Volume 100.7 fL (81-99); Mean Platelet Volume 9.3 fL (7.4-10.4); Monocytes # 0.5 10^3/uL (0.2-0.9); Monocytes % 5.3 %; Neutrophils # 7.92 10^3/uL (1.8-7.7); Neutrophils % 81.6 %; Nucleated Red Blood Cells % 0 %; Platelet Count 537 10^3/cmm (130-400); Red Blood Count 2.92 10^6/uL (4.1-5.3); Red Cell Distribution Width 14.9 % (12.1-15.1); White Blood Count 9.7 10^3/uL (4.0-10.0)
[2019-12-17 15:35] LABS: Glucose Urine UA Norm (Normal); Protein Urine Neg (Negative); Urine Appearance Clear (CLEAR); Urine Color Yellow (Yellow); pH Urine 7 (5-7)
[2019-12-17 15:36] LABS: Add Urine Microscopic? YES; Bilirubin Urine Neg (Negative); Blood Urine 2+ (Negative); Ketones Urine Negative (Negative); Leukocyte Esterase Urine Negative (Negative); Nitrate Urine Negative (Negative); Urobilinogen Urine 4 mg/dL (Negative)
[2019-12-17 15:37] LABS: Add Urine Culture? No; Bacteria Urine TRACE /hpf; RBC Urine 0-4 /hpf (0-2); Squamous Epithelial Cell Urine 0-4 /hpf (0-5)
[2019-12-17 15:38] LABS: INR 1.05 (0.8-1.2)
[2019-12-17 15:48] LABS: Alanine Aminotransferase 7 U/L (0-33); Albumin Level 3.7 g/dL (3.5-5.2); Alkaline Phosphatase 131 IU/L (35-105); Anion Gap 14.1 (5-19); Aspartate Amino Transferase 10 U/L (0-32); Blood Urea Nitrogen 6 mg/dL (6-20); Calcium 9.3 mg/dL (8.5-10.5); Carbon Dioxide 26 mmol/L (22-29); Chloride 97 mmol/L (98-107); Globulin 3.3 g/dL (1.3-4.6); Glomerular Filtration Rate 138.1 mL/min (90-130); Glucose 104 mg/dL (65-115); Lipase 11 U/L (13-60); Osmolality Calculated 274 mOsm/kg (285-295); Potassium 4.1 mmol/L (3.5-5.1); Sodium 133 mmol/L (136-145); Total Bilirubin 0.5 mg/dL (0.15-1.2)
[2019-12-17] MEDS: iohexol 300 mg/mL 100 mL Btl IV ×2 (16:08→16:09)
--- NOTE | 2019-12-17 20:13 | PC.NURSE ---
RN informed patient that pain medication was available at this time, patient is requesting to wait longer before taking pain medication and will inform this RN when she is ready to take pain medication.
[2019-12-18 00:05] VITALS: BP 103/67; PULSE 86; RESP 15; TEMP 36.8; O2SAT 98
[2019-12-18] MEDS: HYDROcodone-acetaminophen 5-325 mg Tablet 1 TAB PO ×2 (02:41→08:09)
[2019-12-18 04:15] VITALS: BP 114/74; PULSE 98; RESP 16; TEMP 36.9; O2SAT 96
[2019-12-18 04:56] LABS: Basophils % 0.2 %; Eosinophils # 0.1 10^3/uL (0.0-0.8); Eosinophils % 0.9 %; Hematocrit 34.3 % (37.0-47.0); Hemoglobin 10.6 g/dL (11.5-15.3); Lymphocytes # 1.3 10^3/uL (0.8-4.8); Lymphocytes % 14.1 %; Mean Corpuscular HGB Conc 30.9 g/dL (30.0-36.0); Mean Corpuscular Volume 93.7 fL (81-99); Mean Platelet Volume 9.2 fL (7.4-10.4); Monocytes # 0.8 10^3/uL (0.2-0.9); Monocytes % 8.2 %; Neutrophils # 6.97 10^3/uL (1.8-7.7); Neutrophils % 76.3 %; Nucleated Red Blood Cells % 0 %; Platelet Count 461 10^3/cmm (130-400); Red Blood Count 3.66 10^6/uL (4.1-5.3); White Blood Count 9.1 10^3/uL (4.0-10.0)
--- NOTE | 2019-12-18 08:14 | P.DS_ITS ---
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 With tender left lower quadrant pain around ecchymosis site. Hemoglobin on the clinic have been reported at 7. Patient was counseled regarding findings. Blood transfusion was recommended and she was admitted for transfusion of 2 units of packed red blood cells. Patient was performed without complication. Patient refers feeling fine. Pain under control with medication. Physical Exam Narrative: EXAM NARRATIVE: COMMON NORMALS: no acute distress and patient oriented x3 GENERAL APPEARANCE: cooperative, comfortable and well kempt ORIENTATION/CONSCIOUSNESS: Yes awake HENMT: COMMON NORMALS: normocephalic and atraumatic HEAD & SCALP: normal to inspection, normocephalic and atraumatic Eye: COMMON NORMALS: Equal, round and reactive pupils present, EOMs intact bilaterally, conjunctivae normal and no scleral icterus CONJUNCTIVA: Yes conjunctivae normal PUPIL: Yes Equal, round and reactive pupils present Neck/C-Spine: COMMON NORMALS: full ROM and no JVD GENERAL: Yes normal visual inspection Lymph: LYMPHATIC: no lymphadenopathy noted Resp: COMMON NORMALS: normal respiratory effort Cardio: COMMON NORMALS: no JVD, regular rate and regular rhythm RATE: regular rate RHYTHM: regular rhythm GI: COMMON NORMALS: Normal to inspection, nondistended, normoactive bowel sounds present, Soft to palpation, No hepatosplenomegaly present and no masses INSPECTION: Yes abdominal wall ecchymosis (at incision sites LLQ and suprapubic.), No Abdominal wall edema, Yes incision Inspection of incision: healing well and Yes scar PALPATION: Yes Soft to palpation, Yes Tenderness to palpation present (GI) Details: LLQ (incision site) and Yes No hepatosplenomegaly present PERCUSSION: normal to percussion : COMMON NORMALS: Yes no CVA tenderness BLADDER/KIDNEY EXAM: Yes no CVA tenderness EXTERNAL FEMALE EXAM: Yes normal appearance of the urethra, No urethral discharge, No lesion, No tender and Yes other ([place]retha hypermobility) SPECULUM EXAM - VAGINA: Yes vagina atrophic SPECULUM EXAM - CERVIX: Yes Cervix absent BIMANUAL EXAM - VAGINA & UTERUS: Yes uterus absent BIMANUAL EXAM - ADNEXA, OTHER: Yes normal adnexae, No cul-de-sac fullness and No cul-de-sac tenderness RECTO-VAGINAL: no cul-de-sac fullness and no cul-de-sac tenderness Back/Pelvis: COMMON NORMALS: no CVA tenderness Neuro: COMMON NORMALS: patient oriented x3 Psych: APPEARANCE: Yes well kempt Discharge Data Data Completed and Pending: Completed Studies During Hospitalization Category Date Time Status CT chest abd pel w con* Urgent Cat Scan 12/17/19 15:14 Completed Labs from last 24 hours 12/18/19 12/17/19 12/17/19 04:30 15:00 15:00 WBC 9.1 RBC 3.66 L Hgb 10.6 L Hct 34.3 L MCV 93.7 D MCH 29.0 MCHC 30.9 D RDW 16.0 H Plt Count 461 H MPV 9.2 Neut % (Auto) 76.3 Lymph % (Auto) 14.1 [place] % (Auto) 8.2 Eos % (Auto) 0.9 Baso % (Auto) 0.2 Neut # (Auto) 6.97 Lymph # (Auto) 1.3 [place] # (Auto) 0.8 Eos # (Auto) 0.1 Baso # (Auto) 0.0 Nucleated RBC % (a uto) 0 Nucleated RBCs # 0.0 PT INR Sodium 133 L Potassium 4.1 Chloride 97 L Carbon Dioxide 26 Anion Gap 14.1 BUN 6 Creatinine 0.5 GFR Calculation 138.1 H Glucose 104 Calculated Osmolal ity 274 L Calcium 9.3 Total Bilirubin 0.5 AST 10 ALT 7 Alkaline Phosphata se 131 H Total Protein 7.0 Albumin 3.7 Globulin 3.3 Lipase 11 L Urine Color Urine Appearance Urine pH Ur Specific Gravit y Urine Protein Urine Glucose (UA) Urine Ketones Urine Blood Urine Nitrate Urine Bilirubin Urine Urobilinogen Ur Leukocyte Mcihelle ase Urine RBC Urine WBC Ur Squamous Epith Cells Amorphous Sediment Urine Bacteria Blood Type O Negative Rho(D) Type Negative Antibody Screen Negative Crossmatch See Detail 12/17/19 12/17/19 12/17/19 15:00 15:00 14:50 WBC 9.7 RBC 2.92 L Hgb 8.6 L Hct 29.4 L MCV 100.7 H MCH 29.5 MCHC 29.3 L RDW 14.9 Plt Count 537 H MPV 9.3 Neut % (Auto) 81.6 Lymph % (Auto) 12.0 [place] % (Auto) 5.3 Eos % (Auto) 0.4 Baso % (Auto) 0.4 Neut # (Auto) 7.92 H Lymph # (Auto) 1.2 [place] # (Auto) 0.5 Eos # (Auto) 0.0 Baso # (Auto) 0.0 Nucleated RBC % (a uto) 0 Nucleated RBCs # 0.0 PT 14.00 INR 1.05 Sodium Potassium Chloride Carbon Dioxide Anion Gap BUN Creatinine GFR Calculation Glucose Calculated Osmolal ity Calcium Total Bilirubin AST ALT Alkaline Phosphata se Total Protein Albumin Globulin Lipase Urine Color Yellow Urine Appearance Clear Urine pH 7 Ur Specific Gravit y 1.010 Urine Protein Neg Urine Glucose (UA) Norm Urine Ketones Negative Urine Blood 2+ H Urine Nitrate Negative Urine Bilirubin Neg Urine Urobilinogen 4 H Ur Leukocyte Michelle ase Negative Urine RBC 0-4 H Urine WBC None Ur Squamous Epith Cells 0-4 H Amorphous Sediment Not Reportable Urine Bacteria Trace Blood Type Rho(D) Type Antibody Screen Crossmatch Vitals: Last Vital Signs Temp 98.5 F 12/18/19 04:15 Pulse 98 12/18/19 04:15 Resp 16 12/18/19 04:15 BP 114/74 12/18/19 04:15 Pulse Ox 96 12/18/19 04:15 Discharge Plan Discharge Patient Disposition: Home Condition: Stable Prescriptions: [place] 5-325 mg tablet 2 tab PO Q4H PRN (Reason: pain) Qty: 20 RF: 0 ibuprofen 800 mg tablet 800 mg PO TID PRN (Reason: pain) Qty: 60 RF: 0 Continued atenolol 50 mg tablet 50 mg PO DAILY RF: 0 tramadol 50 mg tablet 50 mg PO Q6H PRN (Reason: Pain) RF: 0 alprazolam 0.25 mg tablet 0.125 - 0.25 mg PO TID PRN (Reason: unknown) RF: 0 ferrous sulfate 325 mg (65 mg iron) tablet 65 mg PO BID RF: 0 ibuprofen 200 mg Tablet 600 - 800 mg PO PRN RF: 0 Held hydrocodone-acetaminophen 5-325 mg tablet 1 tab PO Q4H PRN (Reason: Pain) RF: 0 Hold Instructions: Resume on 12/18/19. Discharge Orders: Discharge Order (Routine); Ordered 12/17/19 Ordered By: Deb Quinonez Referrals: Malick Guerrero MD [Physician] - 1 week Chance Cota [Primary Care Provider] - Discharge Diet: Usual diet and Regular Discharge Activity: Resume usual activity and Increase activity as tolerated Patient Instructions: Abdominal Pain (ED), Anemia (ED) Activity Restrictions/Additional Instructions: Here to go to OB and received 2 units of packed red blood cells for your anemia per Dr. Guerrero Return to the emergency department if you develop worsening bruising to the lower abdomen, increased abdominal pain, blood in your stool, feeling of passing out Take it easy when you are at home, follow the postoperative hysterectomy instructions as provided by Dr. Guerrero. Pelvic rest for 6 weeks (no sex, no tampons, no vaginal douches). Return to the emergency room if any fever, increased bleeding or pain. 1. Please call [facility] on next working day to make your appointment in 1 weeks. 2. Please stay home until you come back to the clinic on first post-operative check up. 3. Please follow instructions on your medications CAREFULLY. 4. If you have abdominal incision, do not cover it unless dressing is necessary because of drainage. OK to shower, but avoid bath. Leave steri-strips until they fall off. If they are still on one week after surgery, you may remove them. 5. If you had vaginal surgery, your doctor may instuct you to take SITZ bath. 6. Yellow, blood tinged odorous vaginal discharge is usually normal after hysterectomy or vaginal surgeries. 7. No sexual intercourse, tampons, or douches until you are completely released from the post-operative care. 8. Avoid constipation by eating right and maybe using some Metamucil or Milk of Magnesia. 9. All presciption refills are given during the working hours. Please do no wait till it runs out. Call the clinic at [phone] before your medication runs out. The clinic will get in touch with your doctor to prescribe medications if necessary. 10. Please remain within 40 mile radius from our hospital because emergencies do happen now and then during the post-operative period. 11. If you have stairs at home, take one step at a time slowly and minimize the number of trips. It helps to stay in one floor for the next few days. No lifting except what you can lift by one hand until you are released from the post-operative care. 12. Driving is discouraged until you are well healed. It may be 3-4 weeks before you feel strong enough to drive. You should be able to turn and look throught the rear window without pain and you should be able to push the brake pedal very hard without pain before you drive. No fast rules, but SAFETY should be your primary concern. DO NOT drive if you are on sedating medications such as narcotics. 13. Call the clinic (during working hours) to make urgent appointment or go to the Emergency room, if any of the following occurs: i. Vaginal bleeding becomes heavy, more than a period. ii. Incision becomes red and sore, or drains pus. iii. Your temperature is over 100.4 or you have chill. iv. IV site becomes red and swollen (a little ``knot?? is usually OK) v. Persistent nausea and vomiting vi. Persistent constipation or diarrhea vii. Rash or allergic reaction to medications. 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
[2019-12-18 09:03] VITALS: BP 137/90; PULSE 93; RESP 16; TEMP 36.8; O2SAT 99
[2019-12-18 09:04] VITALS: BP 137/90; PULSE 93; RESP 16; TEMP 36.8; O2SAT 99
--- NOTE | 2019-12-21 07:45 | PC.RESP ---
Smoking Cessation information sent to patient.
== END 2019-12-18 09:23 | disposition home or self-care (01) ==
LOC: ER 17:10 → OBGYN 17:36
PROVIDERS: Admitting Provider Obstetrics & Gynecology; Emergency Provider Nurse Practitioner Family; PCP Family Medicine; Visit Provider Obstetrics & Gynecology
DX: D62 Acute posthemorrhagic anemia (principal); L76.32 Postprocedural hematoma of skin and subcutaneous tissue following other procedure; F17.210 Nicotine dependence, cigarettes, uncomplicated; Z90.710 Acquired absence of both cervix and uterus; Y83.8 Other surgical procedures as the cause of abnormal reaction of the patient, or of later complication, without mention of misadventure at the time of the procedure
CPT/HCPCS: 12345; 36415; 36430; 71260; 74177; 80053; 81001; 83690; 85025; 85610; 86850; 86900; 86920; 99283; G0378; J7040; P9016; Q9967

== ENCOUNTER → 2019-12-23 10:50 | Outpatient (BNVA) | payer SELFPAY | PROVIDERS: PCP Family Medicine; Visit Provider Obstetrics & Gynecology | DX: N83.202 Unspecified ovarian cyst, left side (principal); N94.89 Other specified conditions associated with female genital organs and menstrual cycle; Z90.710 Acquired absence of both cervix and uterus | CPT/HCPCS: 76830; 76856 ==

== ENCOUNTER 2020-06-12 17:12 | Emergency (ER) | payer SELFPAY ==
--- NOTE | 2020-06-12 17:27 | ECG_ITS ---
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 Measurements Intervals [place] Rate: 62 P: 41 WY: 144 QRS: 49 QRSD: 96 T: 47 QT: 393 QTc: 401 Interpretive Statements SINUS RHYTHM POSSIBLE LEFT ATRIAL ENLARGEMENT [-0.1mV P WAVE IN V1/V2] Compared to ECG 05/03/2018 17:55:38 Sinus tachycardia no longer present T-wave abnormality no longer present Electronically Signed On 06-12-2020 22:43:32 CDT by Cristine Recinos M.D. [id number]
--- NOTE | 2020-06-12 17:27 | XRR_ITS ---
PROCEDURE INFORMATION: Exam: XR Chest Exam date and time: 06/12/2020 5:52 PM Age: 40 years old Clinical indication: Cough and dyspnea; Additional info: Dyspnea/cough TECHNIQUE: Imaging protocol: XR of the chest Views: 1 view. COMPARISON: CT chest abd pel w con* 12/17/2019 3:54 PM FINDINGS: Lungs: Unremarkable. No consolidation. Pleural spaces: Unremarkable. No pleural effusion. No pneumothorax. Heart/Mediastinum: Unremarkable. No cardiomegaly. Bones/joints: Unremarkable. XR/XR chest 1V portable [id number] IMPRESSION: No acute findings.
[2020-06-12 17:39] VITALS: BP 158/97; PULSE 67; RESP 15; TEMP 36.9; O2SAT 99; BMI 22.6
--- NOTE | 2020-06-12 17:44 | W.ED.ABDPA2 ---
HPI - Abdominal Pain General: Chief Complaint: Chest Pain Stated Complaint: chest pain, swelling in feet/ankles, headache Time Seen by Provider: 06/12/20 17:32 History of Present Illness: HPI narrative: The patient is a 40-year-old female with past medical history anxiety who comes to the ER complaining of chest pain, headache, and lower extremity swelling. She said it started a couple days ago and kind of improved but today it got worse. She said this morning her feet were very puffy but the swelling has gone down some but she continues to have chest pain. No cardiac history. Associated Symptoms: Denies GI cramping and diarrhea Related Data: Date of Last Menstrual Period: 11/15/19 Review of Systems General: Reports: 10 or more systems reviewed and unremarkable except in HPI and below Const: Denies: fatigue Eyes: Denies: change in vision, blurry vision or eye redness ENMT: Denies: throat pain, swelling of lips/tongue, ear or mastoid pain or nasal congestion Card: Reports: chest pain; Denies: palpitations, irregular heart rhythm, edema, dyspnea on exertion or orthopnea Resp: Denies: dyspnea, productive cough or non-productive cough GI: Denies: abdominal pain, diarrhea or GI cramping : Denies: flank pain, difficulty voiding, urinary frequency or urinary urgency Musc: Denies: neck pain, back pain, extremity pain, joint pain, joint redness, limited range of motion or muscle weakness Skin/Breast: Denies: rash, pruritus, erythema, skin pain or skin tenderness Neuro: Denies: headache(s), numbness in extremities, weakness in extremities, sensory changes, difficulty walking, dizziness, confusion or Slurred speech present Psych: Denies: anxiety or depression Endo: Denies: polyuria All/Imm: Denies: urticaria, throat swelling or tongue swelling PFSH ED PFSH: Medical History (Updated 06/12/20 @ 21:16 by Cisco Connolly MD) Aftercare following surgery of the genitourinary system Surgical History H/O dilation and curettage x1 H/O laparoscopy Diagnostic laparoscopy.?? Lysis of adhesions.?? Fulguration of endometriotic lesions.? per Dr. Guerrero at [facility] 09/25/2017 H/O: hysterectomy Laparoscopic assisted vaginal hysterectomy with right oophorectomy, lysis of adhesions and cystoscopy performed on 12/02/[address] Guerrero at [facility] History of delivery (~2013) Performed with TUbal ligation History of delivery (~2000) History of tubal ligation (~2013) S/P LEEP Family History Mother Hypertension Hyperlipidemia Father Hypertension Hyperlipidemia Grandfather Diabetes Other Cancer Denies family history of CAD (coronary artery disease) Clotting disorder Dementia Psychiatric illness Chronic kidney disease (CKD) Suicide Anesthesia complication Bleeding disorder Family history of premature coronary artery disease Lung disease Stroke Social History Smoking and tobacco status: current every day smoker cigarettes Packs smoked per day: 0.5 Alcohol intake: never Female Reproductive History: Date of last menstrual period: 11/15/19 Physical Exam Const: COMMON NORMALS: no acute distress, average body habitus, patient oriented x3, no limitations, healthy appearing, alert and well nourished GENERAL APPEARANCE: cooperative, comfortable, well kempt, well developed and anxious ORIENTATION/CONSCIOUSNESS: Yes awake, Yes oriented to person, Yes oriented to place and Yes oriented to time HENMT: COMMON NORMALS: normocephalic, external ears normal and Normal external nose present HEAD & SCALP: normal to inspection and normocephalic NOSE: Normal external nose present EXTERNAL EAR: Yes external ears normal MOUTH: Normal oral and palatal mucosa present THROAT: posterior oropharynx normal Eye: COMMON NORMALS: Equal, round and reactive pupils present and EOMs intact bilaterally GENERAL EYE: appearance normal, both eyes and all related structures PUPIL: Yes Equal, round and reactive pupils present Neck/C-Spine: COMMON NORMALS: full ROM, no lymphadenopathy, no meningeal signs and no JVD GENERAL: Yes normal visual inspection Lymph: LYMPHATIC: no lymphadenopathy noted Chest: COMMONS NORMALS: normal inspection of the chest and normal palpation of entire chest wall Resp: COMMON NORMALS: normal respiratory effort, No retractions, No use of accessory muscles, clear to auscultation bilaterally and percussion normal EFFORT & INSPECTION: Yes able to speak in complete sentences AUSCULTATION: clear to auscultation bilaterally PERCUSSION: percussion normal Cardio: COMMON NORMALS: no JVD, regular rate, regular rhythm, S1 normal heart sound present, S2 normal heart sound present and Peripheral pulses 2+ throughout RATE: regular rate RHYTHM: regular rhythm HEART SOUNDS: S1 normal heart sound present and S2 normal heart sound present PERIPHERAL PULSES: Peripheral pulses 2+ throughout GI: COMMON NORMALS: Normal to inspection, nondistended, normoactive bowel sounds present, Soft to palpation, non-tender and no masses INSPECTION: Yes normal to inspection PALPATION: Yes Soft to palpation : COMMON NORMALS: Yes no CVA tenderness BLADDER/KIDNEY EXAM: Yes no CVA tenderness Back/Pelvis: COMMON NORMALS: no CVA tenderness, thoracic and lumbar spine normal to inspection, no thoracic nor lumbar tenderness and thoraco-lumbar ROM normal Extremity: COMMON NORMALS: normal to inspection, full ROM, capillary refill normal, no joint enlargement and no pedal edema GENERAL: Yes normal exam except as noted Neuro: COMMON NORMALS: patient oriented x3, CN's II-XII intact bilaterally, moves all extremities, no focal motor deficits, no sensory deficits noted and gait normal SENSORIUM/ORIENTATION: Yes alert, Yes oriented to person, Yes oriented to place and Yes oriented to time MENINGEAL SIGNS: Yes no meningeal signs Psych: COMMON NORMALS: mental status grossly normal, Normal thought process present, cooperative, normal affect and speech normal APPEARANCE: Yes well kempt ATTITUDE: Yes calm SPEECH: Yes normal speech THOUGHT PROCESS: Normal thought process present Skin: COMMON NORMALS: no rashes or lesions noted GENERAL SKIN EXAM: no rashes or lesions noted Course Vital Signs: Vital signs: Vital Signs Temperature 98.5 F 06/12/20 17:39 Pulse Rate 70 06/12/20 20:33 Respiratory Rate 16 06/12/20 20:33 Blood Pressure 147/96 06/12/20 20:33 Pulse Oximetry 94 06/12/20 20:33 MDM - Abdominal Pain MDM Narrative: Medical decision making narrative: The patient came complaining of atypical chest pain. Likely chest wall. Incidentally she has 1+ pitting edema to her feet and an elevated BNP. Recommended following up with primary care physician later this week and getting a cardiology referral. ER with worsening symptoms. Lab Data: Labs: Lab Results 06/12/20 06/12/20 06/12/20 Range/Units 17:40 17:40 17:40 WBC 7.4 (4.0-10.0) 10^3/ uL RBC 4.56 (4.1-5.3) 10^6/u L Hgb 13.5 (11.5-15.3) g/dL Hct 41.7 (37.0-47.0) % MCV 91.4 (81-99) fL MCH 29.6 (28.0-34.0) pg MCHC 32.4 (30.0-36.0) g/dL RDW 13.2 (12.1-15.1) % Plt Count 243 (130-400) 10^3/c mm MPV 10.7 H (7.4-10.4) fL Neut % (Auto) 71.1 % Lymph % (Auto) 21.7 % [place] % (Auto) 4.2 % Eos % (Auto) 1.9 % Baso % (Auto) 0.7 % Neut # (Auto) 5.29 (1.8-7.7) 10^3/u L Lymph # (Auto) 1.6 (0.8-4.8) 10^3/u L [place] # (Auto) 0.3 (0.2-0.9) 10^3/u L Eos # (Auto) 0.1 (0.0-0.8) 10^3/u L Baso # (Auto) 0.1 (0.0-0.1) 10^3/u L Nucleated RBC % (a uto) 0 % Nucleated RBCs # 0.0 /100WBC D-Dimer (0-0.59) ug/mIFE U Sodium 137 (136-145) mmol/L Potassium 4.2 (3.5-5.1) mmol/L Chloride 104 (98-107) mmol/L Carbon Dioxide 25 (22-29) mmol/L Anion Gap 12.2 (5-19) BUN 10 (6-20) mg/dL Creatinine 0.8 (0.5-0.9) mg/dL GFR Calculation 79.9 L (90-130) mL/min Glucose 84 (65-115) mg/dL Calculated Osmolal ity 282 L (285-295) mOsm/k g Calcium 9.0 (8.5-10.5) mg/dL Total Bilirubin 0.4 (0.15-1.2) mg/dL AST 17 (0-32) U/L ALT 18 (0-33) U/L Alkaline Phosphata se 85 (35-105) IU/L Troponin T Baselin e 6 (0-10) ng/L Troponin T 120 Min [place] (0-10) ng/L Delta Troponin T (0-10) ABS# NT-Pro-B Natriuret Pep (0-125) pg/mL Total Protein 6.4 L (6.6-8.7) g/dL Albumin 4.1 (3.5-5.2) g/dL Globulin 2.3 (1.3-4.6) g/dL HCG, Qual (Negative) Urine Color (Yellow) Urine Appearance (CLEAR) Urine pH (5-7) Ur Specific Gravit y (1.005-1.030) Urine Protein (Negative) Urine Glucose (UA) (Normal) Urine Ketones (Negative) Urine Blood (Negative) Urine Nitrate (Negative) Urine Bilirubin (Negative) Urine Urobilinogen (Negative) mg/dL Ur Leukocyte Michelle ase (Negative) 06/12/20 06/12/20 06/12/20 Range/Units 17:45 17:45 17:48 WBC (4.0-10.0) 10^3/ uL RBC (4.1-5.3) 10^6/u L Hgb (11.5-15.3) g/dL Hct (37.0-47.0) % MCV (81-99) fL MCH (28.0-34.0) pg MCHC (30.0-36.0) g/dL RDW (12.1-15.1) % Plt Count (130-400) 10^3/c mm MPV (7.4-10.4) fL Neut % (Auto) % Lymph % (Auto) % [place] % (Auto) % Eos % (Auto) % Baso % (Auto) % Neut # (Auto) (1.8-7.7) 10^3/u L Lymph # (Auto) (0.8-4.8) 10^3/u L [place] # (Auto) (0.2-0.9) 10^3/u L Eos # (Auto) (0.0-0.8) 10^3/u L Baso # (Auto) (0.0-0.1) 10^3/u L Nucleated RBC % (a uto) % Nucleated RBCs # /100WBC D-Dimer 0.81 H (0-0.59) ug/mIFE U Sodium (136-145) mmol/L Potassium (3.5-5.1) mmol/L Chloride (98-107) mmol/L Carbon Dioxide (22-29) mmol/L Anion Gap (5-19) BUN (6-20) mg/dL Creatinine (0.5-0.9) mg/dL GFR Calculation (90-130) mL/min Glucose (65-115) mg/dL Calculated Osmolal ity (285-295) mOsm/k g Calcium (8.5-10.5) mg/dL Total Bilirubin (0.15-1.2) mg/dL AST (0-32) U/L ALT (0-33) U/L Alkaline Phosphata se (35-105) IU/L Troponin T Baselin e (0-10) ng/L Troponin T 120 Min [place] (0-10) ng/L Delta Troponin T (0-10) ABS# NT-Pro-B Natriuret Pep 1895 H (0-125) pg/mL Total Protein (6.6-8.7) g/dL Albumin (3.5-5.2) g/dL Globulin (1.3-4.6) g/dL HCG, Qual Negative (Negative) Urine Color (Yellow) Urine Appearance (CLEAR) Urine pH (5-7) Ur Specific Gravit y (1.005-1.030) Urine Protein (Negative) Urine Glucose (UA) (Normal) Urine Ketones (Negative) Urine Blood (Negative) Urine Nitrate (Negative) Urine Bilirubin (Negative) Urine Urobilinogen (Negative) mg/dL Ur Leukocyte Michelle ase (Negative) 06/12/20 06/12/20 Range/Units 17:48 19:40 WBC (4.0-10.0) 10^3/ uL RBC (4.1-5.3) 10^6/u L Hgb (11.5-15.3) g/dL Hct (37.0-47.0) % MCV (81-99) fL MCH (28.0-34.0) pg MCHC (30.0-36.0) g/dL RDW (12.1-15.1) % Plt Count (130-400) 10^3/c mm MPV (7.4-10.4) fL Neut % (Auto) % Lymph % (Auto) % [place] % (Auto) % Eos % (Auto) % Baso % (Auto) % Neut # (Auto) (1.8-7.7) 10^3/u L Lymph # (Auto) (0.8-4.8) 10^3/u L [place] # (Auto) (0.2-0.9) 10^3/u L Eos # (Auto) (0.0-0.8) 10^3/u L Baso # (Auto) (0.0-0.1) 10^3/u L Nucleated RBC % (a uto) % Nucleated RBCs # /100WBC D-Dimer (0-0.59) ug/mIFE U Sodium (136-145) mmol/L Potassium (3.5-5.1) mmol/L Chloride (98-107) mmol/L Carbon Dioxide (22-29) mmol/L Anion Gap (5-19) BUN (6-20) mg/dL Creatinine (0.5-0.9) mg/dL GFR Calculation (90-130) mL/min Glucose (65-115) mg/dL Calculated Osmolal ity (285-295) mOsm/k g Calcium (8.5-10.5) mg/dL Total Bilirubin (0.15-1.2) mg/dL AST (0-32) U/L ALT (0-33) U/L Alkaline Phosphata se (35-105) IU/L Troponin T Baselin e (0-10) ng/L Troponin T 120 Min [place] 6.00 (0-10) ng/L Delta Troponin T 0 (0-10) ABS# NT-Pro-B Natriuret Pep (0-125) pg/mL Total Protein (6.6-8.7) g/dL Albumin (3.5-5.2) g/dL Globulin (1.3-4.6) g/dL HCG, Qual (Negative) Urine Color Yellow (Yellow) Urine Appearance Clear (CLEAR) Urine pH 5 (5-7) Ur Specific Gravit y 1.010 (1.005-1.030) Urine Protein Neg (Negative) Urine Glucose (UA) Norm (Normal) Urine Ketones Negative (Negative) Urine Blood Neg (Negative) Urine Nitrate Negative (Negative) Urine Bilirubin Neg (Negative) Urine Urobilinogen Norm (Negative) mg/dL Ur Leukocyte Michelle ase Negative (Negative) Discharge Plan Discharge Patient Disposition: Home Clinical Impression: Atypical chest pain, Elevated brain natriuretic peptide (BNP) level Condition: Stable Prescriptions: No Action atenolol 50 mg tablet 50 mg PO DAILY RF: 0 tramadol 50 mg tablet 50 mg PO Q6H PRN (Reason: Pain) RF: 0 [place] 5-325 mg tablet 1 tab PO Q4H PRN (Reason: pain) 5 Days Qty: 10 RF: 0 alprazolam 0.25 mg tablet 0.125 - 0.25 mg PO TID PRN (Reason: unknown) RF: 0 ibuprofen 800 mg tablet 800 mg PO TID PRN (Reason: pain) Qty: 60 RF: 0 Discharge Orders: Discharge ED (Routine); Ordered 06/12/20 Ordered By: Cisco Connolly Referrals: hCance Cota [Primary Care Provider] - Discharge Diet: Advance as tolerated Discharge Activity: Resume usual activity Patient Instructions: Chest Pain (ED), Opioid Safety Activity Restrictions/Additional Instructions: You have chest pain of unclear cause though it is likely the wall of your chest given your pain. Please take Tylenol to help with this pain. The swelling in your ankles and feet is slightly concerning because your BNP is also elevated. Please follow-up with Dr. Cota sometime this week and get an echocardiogram and referral to a heart doctor as this may be an early sign of heart disease. Return to the ER with worsening symptoms at any time. Coding Level of Care Code ED Learning And Development Consultant for Michi Fwmya Exam Comprehensive
[2020-06-12 18:00] LABS: Basophils # 0.1 10^3/uL (0.0-0.1); Basophils % 0.7 %; Eosinophils # 0.1 10^3/uL (0.0-0.8); Eosinophils % 1.9 %; Hematocrit 41.7 % (37.0-47.0); Hemoglobin 13.5 g/dL (11.5-15.3); Lymphocytes # 1.6 10^3/uL (0.8-4.8); Lymphocytes % 21.7 %; Mean Corpuscular HGB Conc 32.4 g/dL (30.0-36.0); Mean Corpuscular Hemoglobin 29.6 pg (28.0-34.0); Mean Corpuscular Volume 91.4 fL (81-99); Mean Platelet Volume 10.7 fL (7.4-10.4); Monocytes # 0.3 10^3/uL (0.2-0.9); Monocytes % 4.2 %; Neutrophils # 5.29 10^3/uL (1.8-7.7); Neutrophils % 71.1 %; Nucleated Red Blood Cells % 0 %; Platelet Count 243 10^3/cmm (130-400); Red Blood Count 4.56 10^6/uL (4.1-5.3); Red Cell Distribution Width 13.2 % (12.1-15.1); White Blood Count 7.4 10^3/uL (4.0-10.0)
[2020-06-12 18:13] LABS: Troponin(5th) Baseline 6 ng/L (0-10)
[2020-06-12] MEDS: LORazepam 2 mg/mL INJ 1 mL 0.5 MG IVP (18:13)
[2020-06-12] MEDS: aspirin 325 mg Tablet PO (18:13)
[2020-06-12 18:17] LABS: Alanine Aminotransferase 18 U/L (0-33); Albumin Level 4.1 g/dL (3.5-5.2); Alkaline Phosphatase 85 IU/L (35-105); Anion Gap 12.2 (5-19); Aspartate Amino Transferase 17 U/L (0-32); Blood Urea Nitrogen 10 mg/dL (6-20); Carbon Dioxide 25 mmol/L (22-29); Chloride 104 mmol/L (98-107); Globulin 2.3 g/dL (1.3-4.6); Glomerular Filtration Rate 79.9 mL/min (90-130); Glucose 84 mg/dL (65-115); Osmolality Calculated 282 mOsm/kg (285-295); Potassium 4.2 mmol/L (3.5-5.1); Sodium 137 mmol/L (136-145); Total Bilirubin 0.4 mg/dL (0.15-1.2); Total Protein 6.4 g/dL (6.6-8.7)
[2020-06-12] MEDS: sodium chloride 0.9% 1,000 ML 999 ML IV (18:18)
[2020-06-12 18:23] LABS: HCG Qualitative Urine. Negative (Negative)
[2020-06-12 18:39] LABS: D Dimer 0.81 ug/mIFEU (0-0.59)
[2020-06-12 18:43] LABS: NT Pro B Type Natriuretic Pept 1895 pg/mL (0-125)
[2020-06-12 19:01] VITALS: BP 145/94; PULSE 65; RESP 14; O2SAT 95
--- NOTE | 2020-06-12 19:14 | CTR_ITS ---
PROCEDURE INFORMATION: Exam: CT Angiography Chest With Contrast Exam date and time: 06/12/2020 7:38 PM Age: 40 years old Clinical indication: Pain; Chest pressure; Patient HX: C/O cp/pressure w ble swelling; Additional info: R/O pe TECHNIQUE: Imaging protocol: Computed tomographic angiography of the chest with contrast. 3D rendering (Not supervised by radiologist): MIP and/or 3D reconstructed images were created by the technologist. Radiation optimization: All CT scans at this facility use at least one of these dose optimization techniques: automated exposure control; mA and/or kV adjustment per patient size (includes targeted exams where dose is matched to clinical indication); or iterative reconstruction. Contrast material: OMNI 350; Contrast volume: 63 ml; Contrast route: INTRAVENOUS (IV); COMPARISON: CT chest abd pel w con* 12/17/2019 3:54 PM RADIATION DOSE METRICS: Total DLP (mGy-cm): 443.4 FINDINGS: Pulmonary arteries: Normal. No pulmonary emboli. Aorta: Unremarkable. No aortic aneurysm. No aortic dissection. Lungs: Emphysema. Mild atelectasis in the lower lobes. The lungs are otherwise clear. Pleural spaces: Unremarkable. No pneumothorax. No pleural effusion. Heart: Unremarkable. No cardiomegaly. No pericardial effusion. Lymph nodes: Unremarkable. No enlarged lymph nodes. Bones/joints: Unremarkable. No acute fracture. Soft tissues: Unremarkable. CT/CT angio chest PE protcl [id number] IMPRESSION: 1. No evidence for pulmonary embolus or other acute finding. 2. Emphysema. Radiation Dose CTDIVOL = (mGy): DLP = 443.4 (mGy-cm)
--- NOTE | 2020-06-12 19:27 | ECG_ITS ---
[facility] Test Date: 2020-06-12 Pat Name: Liberty Briones Department: Room: Gender: Female Biostatistician: : 1980 Requested By: Maksim Collins Order Number: [id number] Vincent MD: Cristine Recinos M.D. Measurements Intervals [place] Rate: 56 P: 38 MO: 150 QRS: 31 QRSD: 92 T: 28 QT: 421 QTc: 407 Interpretive Statements SINUS BRADYCARDIA Compared to ECG 06/12/2020 17:41:50 Sinus rhythm no longer present Electronically Signed On 06-12-2020 22:53:48 CDT by Cristine Recinos M.D. [id number] f
[2020-06-12 19:36] VITALS: BP 145/94; PULSE 69; RESP 14; O2SAT 95
[2020-06-12 19:54] LABS: Add Urine Microscopic? NO; Bilirubin Urine Neg (Negative); Blood Urine Neg (Negative); Glucose Urine UA Norm (Normal); Ketones Urine Negative (Negative); Leukocyte Esterase Urine Negative (Negative); Nitrate Urine Negative (Negative); Protein Urine Neg (Negative); Urine Appearance Clear (CLEAR); Urine Color Yellow (Yellow); Urobilinogen Urine Norm (Negative); pH Urine 5 (5-7)
[2020-06-12 20:08] LABS: Troponin 5 2HR Delta 0 ABS# (0-10)
[2020-06-12] MEDS: iohexol 350 mg/mL 100 mL Btl IV (20:12)
[2020-06-12 20:33] VITALS: BP 147/96; PULSE 70; RESP 16; O2SAT 94
== END 2020-06-12 21:31 | disposition home or self-care (01) ==
PROVIDERS: Family Medicine; Emergency Provider Family Medicine; PCP Family Medicine
DX: R07.89 Other chest pain (principal); R79.89 Other specified abnormal findings of blood chemistry; F17.210 Nicotine dependence, cigarettes, uncomplicated
CPT/HCPCS: 71045; 71275; 80053; 81003; 81025; 83880; 84484; 85025; 85378; 93005; 96374; 99284; J2060; J7030; Q9967

== ENCOUNTER 2020-09-27 09:20 | Outpatient (CLI) | payer SELFPAY ==
--- NOTE | 2020-09-27 09:30 | USCV_ITS ---
Liberty Briones Age: 40 Gender: F : 1980 Exam Date: 09/27/2020 09:40 Ordering Phys: Bettie Bryan MD ([email or web address]) Technologist: Jhon Liocna [place] [facility] [place]: chest pain BP: 117 / 70 HR: 89 Rhythm: Sinus Technical Quality: Good MEASUREMENTS (Male / Female) Normal Values 2D ECHO LV Diastolic Diameter PLAX 4.5 cm 4.2 - 5.9 / 3.9 - 5.3 cm LV Systolic Diameter PLAX 2.7 cm IVS Diastolic Thickness 0.7 cm 0.6 - 1.0 / 0.6 - 0.9 cm IVS Systolic Thickness 1.1 cm LVPW Diastolic Thickness 0.8 cm 0.6 - 1.0 / 0.6 - 0.9 cm LVPW Systolic Thickness 1.1 cm LVOT Diameter 2.0 cm LV Ejection Fraction 2D Teich 71.5 % LV Ejection Fraction MOD 2C 61.2 % LV Ejection Fraction 2C AL 62.4 % LA Diameter 3.0 cm LA Width 3.1 cm LA Height 4.6 cm RA Width 2.9 cm RA Height 4.0 cm Aorta at Sinotubular Diameter 2.6 cm DOPPLER AV Peak Velocity 141.0 cm/s LVOT Peak Velocity 129.0 cm/s AV Area Cont Eq vti 3.2 cm squared AV Area Cont Eq pk 2.9 cm squared MV Area PHT 5.0 cm squared Mitral E to A Ratio 1.2 MV E' Velocity 58.0 cm/s Mitral E to MV E' Ratio 7.6 Mitral E to LV E' Lateral Ratio 9.5 Mitral E to LV E' Septal Ratio 6.4 TR Peak Velocity 131.0 cm/s TR Peak Gradient 6.9 mmHg TV Peak E Velocity 72.0 cm/s Right Atrial Pressure 3.0 mmHg Pulmonary Artery Systolic Pressu 9.9 mmHg PV Peak Velocity 105.0 cm/s FINDINGS Left Ventricle Normal left ventricular size, systolic function and wall thickness, with no regional wall motion abnormalities. Left ventricular ejection fraction is estimated at 70 %. Normal diastolic function. Right Ventricle Normal right ventricular size and systolic function. RVSP could not be calculated due to incomplete tricuspid regurgitation velocity profile. Right Atrium Normal right atrial size. Right atrial pressure estimated at 3 mmHg. Left Atrium Normal left atrial size. Mitral Valve Structurally normal mitral valve. No mitral valve stenosis. Trace mitral valve regurgitation. Aortic Valve Structurally normal trileaflet aortic valve. No aortic valve stenosis. No aortic valve regurgitation. Tricuspid Valve Structurally normal tricuspid valve. Trace tricuspid valve regurgitation. Pulmonic Valve Pulmonic valve not well visualized. No significant pulmonary valve regurgitation. Pericardium No pericardial effusion. Aorta Normal-sized aortic root. Normal-sized inferior vena cava with normal respiratory variation. CONCLUSIONS 1. Normal left ventricular size, systolic function and wall thickness, with no regional wall motion abnormalities. Left ventricular ejection fraction is estimated at 70 %. Normal diastolic function. 2. Normal right ventricular size and systolic function. 3. No significant valvular abnormality. 4. No prior similar studies to compare. Bettie Bryan MD (Electronically Signed) Final Date: 29 September 2020 17:40 S
== END 2020-09-27 09:21 | disposition home or self-care (01) ==
LOC: RAD 09:21
PROVIDERS: PCP Family Medicine; Visit Provider Internal Medicine Cardiovascular Disease
DX: R00.2 Palpitations (principal); R07.9 Chest pain, unspecified
CPT/HCPCS: 93306

== ENCOUNTER 2023-06-07 13:23 | Emergency (ER) | payer BC, MEDICAID, SELFPAY ==
[2023-06-07 13:25] VITALS: BP 137/88; PULSE 132; RESP 18; TEMP 37.8; O2SAT 99
--- NOTE | 2023-06-07 14:15 | CTR_ITS ---
PROCEDURE INFORMATION: Exam: CT Abdomen And Pelvis With Contrast Exam date and time: 06/07/2023 2:42 PM Age: 43 years old Clinical indication: Abdominal pain; Other: Low abd pain; Prior surgery; Surgery date: <1 month; Surgery type: Bilateral femoral hernia repair 05/03/23; Additional info: Redness/pain/swelling/fever; Recent femoral hernia surgery TECHNIQUE: Imaging protocol: Computed tomography of the abdomen and pelvis with contrast. Radiation optimization: All CT scans at this facility use at least one of these dose optimization techniques: automated exposure control; mA and/or kV adjustment per patient size (includes targeted exams where dose is matched to clinical indication); or iterative reconstruction. Contrast material: OMNI 350; Contrast volume: 80 ml; Contrast route: INTRAVENOUS (IV); COMPARISON: CT chest abdpel w/*[id number] 12/17/2019 3:54 PM RADIATION DOSE METRICS: Total DLP (mGy-cm): 365.29 FINDINGS: Liver: Normal. No mass. Gallbladder and bile ducts: Normal. No calcified stones. No ductal dilation. Pancreas: Normal. No ductal dilation. Spleen: Normal. No splenomegaly. Adrenal glands: Normal. No mass. Kidneys and ureters: Normal. No hydronephrosis. Stomach and bowel: Extensive colonic fecal material suggests constipation. Appendix: No evidence of appendicitis. Intraperitoneal space: Unremarkable. No free air. No significant fluid collection. Vasculature: Unremarkable. No abdominal aortic aneurysm. Lymph nodes: Unremarkable. No enlarged lymph nodes. Urinary bladder: Unremarkable as visualized. Reproductive: Unremarkable as visualized. Bones/joints: Unremarkable. No acute fracture. Soft tissues: There are large bilateral fluid collections in each inguinal region. That on the left measures 6.3 x 5.2 cm in size, on the right 5.1 x 4.8 cm. Each is purely fluid without visible gas. There is inflammatory stranding of the adjacent fat, left greater than right. CT/CT abdomen pelvis w con* [id number] IMPRESSION: Large bilateral inguinal fluid collections. Seroma versus abscess. Correlate clinically.
--- NOTE | 2023-06-07 14:17 | W.ED.ABDPA2 ---
HPI - Abdominal Pain General: Chief Complaint: Fever Stated Complaint: fever, redness around incision Time Seen by Provider: 06/07/23 13:41 Source: patient Mode of arrival: ambulatory Limitations: no limitations History of Present Illness: Patient is a nice 43-year-old female presents to ED today for evaluation and concerns in regards to a possible surgical infection. Patient states she is approximately 5 weeks post bilateral femoral hernia repair by Dr. Torrez in [place]. Patient states she had follow-up with their PA approximately a week ago was having some mild discomfort but otherwise was doing okay. States she was set up for an outpatient CT scan for further evaluation. She states 1-2 days ago she began developing redness/warmth/swelling/and drainage to her left hernia site. She has also had fevers as high as 102.5. She reports difficulty with passing gas and stool and trouble urinating. MD elicited complaint: abdominal pain (surgical infection) Onset (ago): day(s) Pain Consistency: constant Location: Pelvis (L inguinal region) Severity: severe Quality: sharp and burning Radiation: none Migration to: no migration Exacerbating factors: nothing Relieving factors: nothing Context: recent surgery/procedure Associated Symptoms: Reports fever(s) and other (reports trouble passing gas/bowel movements); Denies dysuria, hematochezia, melena, nausea and vomiting Related Data: Patient : No Review of Systems Const: Reports: fever(s); Denies: fatigue or malaise ENMT: Denies: throat pain, odynophagia, nasal discharge, nasal congestion or sinus pain Card: Denies: chest pain Resp: Denies: dyspnea GI: Reports: abdominal pain and other (reports trouble passing gas/bowel movements); Denies: nausea, vomiting, hematochezia or melena : Reports: difficulty voiding; Denies: flank pain, dysuria, urinary frequency, urinary urgency or urinary hesitancy Musc: Denies: neck pain, back pain, extremity pain or joint pain Skin/Breast: Denies: rash Neuro: Denies: headache(s), numbness in extremities, weakness in extremities, sensory changes or dizziness [facility] ED PFSH: Medical History (Updated 06/07/23 @ 15:51 by SATHYA Perry) Aftercare following surgery of the genitourinary system Surgical History S/P LEEP H/O laparoscopy Diagnostic laparoscopy.?? Lysis of adhesions.?? Fulguration of endometriotic lesions.? per Dr. Guerrero at [facility] 09/25/2017 H/O dilation and curettage x1 H/O: hysterectomy Laparoscopic assisted vaginal hysterectomy with right oophorectomy, lysis of adhesions and cystoscopy performed on 12/02/[address] Guerrero at [facility] History of delivery (~2000) History of tubal ligation (~2013) History of delivery (~2013) Performed with TUbal ligation Family History Mother Hypertension Hyperlipidemia Father Hypertension Hyperlipidemia Grandfather Diabetes Other Cancer Denies family history of CAD (coronary artery disease) Clotting disorder Dementia Psychiatric illness Chronic kidney disease (CKD) Suicide Anesthesia complication Bleeding disorder Family history of premature coronary artery disease Lung disease Stroke Social History Smoking and tobacco/nicotine status: current every day tobacco/nicotine user cigarettes Packs smoked per day: 0.5 Alcohol intake: never Substance/Drug Use: never Physical Exam Const: COMMON NORMALS: no acute distress, patient oriented x3, no limitations, alert and well nourished GENERAL APPEARANCE: cooperative NUTRITIONAL APPEARANCE: thin ORIENTATION/CONSCIOUSNESS: Yes awake, Yes oriented to person, Yes oriented to place and Yes oriented to time Eye: COMMON NORMALS: no scleral icterus Resp: COMMON NORMALS: normal respiratory effort and clear to auscultation bilaterally AUSCULTATION: clear to auscultation bilaterally Cardio: COMMON NORMALS: regular rhythm RATE: tachycardic RHYTHM: regular rhythm GI: COMMON NORMALS: No hepatosplenomegaly present PALPATION: Yes Tenderness to palpation present (GI) and Yes No hepatosplenomegaly present OTHER: pt has significant redness/warmth and swelling overlying her L femoral/inguinal hernia site; she is exquisitely tender to palpation here; there is surrounding cellulitic changes Extremity: GENERAL: Yes normal exam except as noted Neuro: DENY COMA SCALE: document GCS findings Deny coma scale eye opening: Spontaneous Mitchell coma scale verbal response: Orientated Deny coma scale motor response: Obey commands Mitchell coma scale total score: 15 COMMON NORMALS: patient oriented x3 SENSORIUM/ORIENTATION: Yes alert, Yes oriented to person, Yes oriented to place and Yes oriented to time Course Vital Signs: Vital signs: Vital Signs Temperature 100.1 F H 06/07/23 13:25 Pulse Rate 132 H 06/07/23 13:25 Respiratory Rate 18 06/07/23 13:25 Blood Pressure 137/88 06/07/23 13:25 Pulse Oximetry 99 06/07/23 13:25 Oxygen Delivery Me thod Room Air 06/07/23 13:25 MDM - Abdominal Pain Medical Decision Making Patient here for concerns of infection regarding her recent hernia surgery site. She arrives with significant redness, warmth, swelling to surgery site. She arrives tachycardic with low-grade fevers here. Fevers have been as high as 102.5 at home. On her blood work she has a white count of 14.7. Her lactate is normal. Her CRP is almost 300. On CT imaging she has bilateral large fluid collections that radiologist stated could be seromas versus abscesses with recommendation to correlate clinically. I have spoke to Dr. David who is utilization review coordinator for Dr. Torrez's group and he is recommending transfer back to them. Spoke to [facility] transfer line and admitting physician will be Dr. Torrez as he will be utilization review coordinator this evening and will consult on patient. She has been started on IV Zosyn and will be made NPO. Medical Records I reviewed the patient's medical records. Lab Data I reviewed the patient's lab results. 06/07/23 14:28 06/07/23 14:28 Labs/Radiology: Radiology Impressions Abdomen/Pelvis CT 06/07/23 14:15 IMPRESSION: Large bilateral inguinal fluid collections. Seroma versus abscess. Correlate clinically. Laboratory Results WBC 14.71 10^3/uL (3.29-11.43) H 06/07/23 14:28 RBC 4.55 10^6/uL (3.85-5.65) 06/07/23 14:28 Hgb 12.70 g/dL (11.27-16.99) 06/07/23 14:28 Hct 38.8 % (36-47) 06/07/23 14:28 MCV 85.3 fl (85-98) 06/07/23 14:28 MCH 27.9 pg (27-33) 06/07/23 14:28 MCHC 32.7 g/dL (30-55) 06/07/23 14: RDW 12.6 % (12.1-15.1) 06/07/23 14: Plt Count 194 10^3/cmm (157-399) 06/07/23 14:28 MPV 11.1 fL (7.4-10.4) H 06/07/23 14: Neut % (Auto) 87.6 % 06/07/23 14: Lymph % (Auto) 5.7 % 06/07/23 14:28 [place] % (Auto) 5.4 % 06/07/23 14:28 Eos % (Auto) 0.1 % 06/07/23 14: Baso % (Auto) 0.3 % 06/07/23 14: Neut # (Auto) 12.89 10^3/uL (1.8-7.7) H 06/07/23 14: Lymph # (Auto) 0.8 10^3/uL (0.8-4.8) 06/07/23 14:28 [place] # (Auto) 0.8 10^3/uL (0.2-0.9) 06/07/23 14: Eos # (Auto) 0.0 10^3/uL (0.0-0.8) 06/07/23 14: Baso # (Auto) 0.0 10^3/uL (0.0-0.1) 06/07/23 14: Nucleated RBC % (auto) 0 % 06/07/23 14: Nucleated RBCs # 0.0 /100WBC 06/07/23 14:28 Sodium 130 mmol/L (136-145) L 06/07/23 14:28 Potassium 3.1 mmol/L (3.5-5.1) L 06/07/23 14:28 Chloride 88 mmol/L (98-107) L 06/07/23 14:28 Carbon Dioxide 27 mmol/L (22-29) 06/07/23 14:28 Anion Gap 18.1 (5-19) 06/07/23 14:28 BUN 12 mg/dL (6-20) 06/07/23 14:28 Creatinine 0.6 mg/dL (0.5-0.9) 06/07/23 14:28 GFR Calculation 109.6 mL/min (90-130) 06/07/23 14:28 Glucose 90 mg/dL (65-115) 06/07/23 14:28 Calculated Osmolality 269 mOsm/kg (285-295) L 06/07/23 14:28 Lactic Acid 1.1 mmol/L (0.5-2.2) 06/07/23 14:28 Calcium 8.8 mg/dL (8.5-10.5) 06/07/23 14:28 Total Bilirubin 0.6 mg/dL (0.15-1.2) 06/07/23 14:28 AST 13 U/L (0-32) 06/07/23 14:28 ALT 7 U/L (0-33) 06/07/23 14:28 Alkaline Phosphatase 101 U/L (35-105) 06/07/23 14:28 C-Reactive Protein 294.3 mg/L (0.0-4.9) H 06/07/23 14:28 Total Protein 7.0 g/dL (6.6-8.7) 06/07/23 14:28 Albumin 3.5 g/dL (3.5-5.2) 06/07/23 14:28 Globulin 3.5 g/dL (1.3-4.6) 06/07/23 14:28 All radiology interpretation(s) finalized by discharge Discharge Plan Discharge Patient Disposition: Xfer Short-Term Hosp Clinical Impression: Surgical site infection, Abdominal wall abscess at site of surgical wound Condition: Stable Coding Level of Care Code ED Assistant Chief Of Police for Michi Bo
[2023-06-07] MEDS: piperacillin-tazobactam 3.375 GM in sodium chloride 0.9% (plus) 50 ML IV (14:38)
[2023-06-07 14:42] LABS: Basophils % 0.3 %; Eosinophils % 0.1 %; Hematocrit 38.8 % (36-47); Lymphocytes # 0.8 10^3/uL (0.8-4.8); Lymphocytes % 5.7 %; Mean Corpuscular HGB Conc 32.7 g/dL (30-55); Mean Corpuscular Hemoglobin 27.9 pg (27-33); Mean Corpuscular Volume 85.3 fl (85-98); Mean Platelet Volume 11.1 fL (7.4-10.4); Monocytes # 0.8 10^3/uL (0.2-0.9); Monocytes % 5.4 %; Neutrophils # 12.89 10^3/uL (1.8-7.7); Neutrophils % 87.6 %; Nucleated Red Blood Cells % 0 %; Platelet Count 194 10^3/cmm (157-399); Red Blood Count 4.55 10^6/uL (3.85-5.65); Red Cell Distribution Width 12.6 % (12.1-15.1); White Blood Count 14.71 10^3/uL (3.29-11.43)
[2023-06-07] MEDS: iohexol 350 mg/mL 500 mL Btl (per mL) IV (14:44)
[2023-06-07 15:02] LABS: Alanine Aminotransferase 7 U/L (0-33); Albumin Level 3.5 g/dL (3.5-5.2); Alkaline Phosphatase 101 U/L (35-105); Aspartate Amino Transferase 13 U/L (0-32); Blood Urea Nitrogen 12 mg/dL (6-20); C Reactive Protein 294.3 mg/L (0.0-4.9); Calcium 8.8 mg/dL (8.5-10.5); Carbon Dioxide 27 mmol/L (22-29); Chloride 88 mmol/L (98-107); Creatinine Clr Calc Pharmacy 94.4853; Globulin 3.5 g/dL (1.3-4.6); Glomerular Filtration Rate 109.6 mL/min (90-130); Glucose 90 mg/dL (65-115); Osmolality Calculated 269 mOsm/kg (285-295); Sodium 130 mmol/L (136-145); Total Bilirubin 0.6 mg/dL (0.15-1.2)
[2023-06-07 15:03] LABS: Lactic Sepsis W/Reflex 1.1 mmol/L (0.5-2.2)
[2023-06-07 15:08] LABS: Anion Gap 18.1 (5-19); Potassium 3.1 mmol/L (3.5-5.1)
[2023-06-07] MEDS: acetaminophen 500 mg Tablet 1000 MG PO (15:11)
[2023-06-07] MEDS: sodium chloride 0.9% 1,000 ML 999 ML IV (15:12)
[2023-06-07 16:13] VITALS: BP 105/63; PULSE 108; RESP 18; O2SAT 94
[2023-06-07] MEDS: potassium chloride ER 20 mEq Tablet 40 MEQ PO (16:24)
[2023-06-07 16:40] LABS: Add Urine Microscopic? NO; Charge for UA Resulting for Rev
[2023-06-07 16:46] LABS: Magnesium 2.2 mg/dL (1.7-2.3)
[2023-06-07] MEDS: fentaNYL 50 mcg/mL INJ 2mL 25 MCG IVP (16:48)
[2023-06-07] MEDS: ondansetron 2 mg/ML SDV 2 mL 4 MG IVP (16:48)
[2023-06-07 16:51] VITALS: BP 120/78; PULSE 115; RESP 16; O2SAT 96
[2023-06-07 16:52] LABS: Bilirubin Urine Neg (Negative); Blood Urine Neg (Negative); Glucose Urine UA Norm (Normal); Ketones Urine 1+ (Negative); Leukocyte Esterase Urine Negative (Negative); Nitrate Urine Negative (Negative); Protein Urine Neg (Negative); Urine Appearance Clear (CLEAR); Urine Color Yellow (Yellow); Urobilinogen Urine Norm (Negative); pH Urine 5 (5-7)
[2023-06-07 17:03] VITALS: BP 113/75; PULSE 107; RESP 18; O2SAT 95
[2023-06-07 17:51] VITALS: BP 106/65; PULSE 100; RESP 16; O2SAT 94
[2023-06-07 19:30] VITALS: BP 98/62; PULSE 88; RESP 18; O2SAT 94
== END 2023-06-07 19:54 | disposition short-term general hospital (02) ==
PROVIDERS: Emergency Provider Physician Assistant
DX: T81.41XA Infection following a procedure, superficial incisional surgical site, initial encounter (principal); Y83.8 Other surgical procedures as the cause of abnormal reaction of the patient, or of later complication, without mention of misadventure at the time of the procedure; F17.210 Nicotine dependence, cigarettes, uncomplicated
CPT/HCPCS: 74177; 80053; 81003; 83605; 83735; 85025; 86140; 87040; 96365; 96366; 96375; 99285; J2405; J2543; J3010; J7030; Q9967

== ENCOUNTER 2023-09-02 12:18 | Outpatient (CLI) | payer BC, MEDICAID, SELFPAY ==
--- NOTE | 2023-09-02 12:45 | USCV_ITS ---
Anselmo Liberty Age: 43 Gender: F : 1980 Exam Date: 09/02/2023 12:58 Ordering Phys: Diaz Minor M.D ([email or web address]) Technologist: MICHAEL Exam Location: [facility] [place] Indication: PRE SYNCOPE Risk Factors: Previous Vascular Surgery: Right Brachial BP: / Left Brachial BP: / Right Left Velocity (cm/s) Spectral Plaque Velocity (cm/s) Spectral Plaque Syst/Diast Broadening Syst/Diast Broadening 125.80/43.60 Prox CCA 91.60 / 25.90 90.30/ 32.50 Mid CCA 115.40/ 44.20 94.40/ 36.80 Distal CCA 101.70/ 40.20 98.20/ 39.50 Prox ICA 72.80 / 30.50 99.60/ 50.20 Mid ICA 109.60/ 46.70 112.80/50.00 Distal ICA 90.80 / 39.40 71.90 ECA 63.90 1.20 ICA/CCA 1.10 Antegrade Vertebral Antegrade 59.30/ 21.00 cm/s 62.70/ 29.40 cm/s Tri Subclavian Tri 142.0 117.1 0 0 FINDINGS Comparison: none available. No significant elevation of systolic or diastolic velocities. Waveforms are normal. Antegrade vertebral arteries. CONCLUSIONS Normal carotid doppler ultrasound. Dr. Courtney Naidu DO (Electronically Signed) Final Date: 02 September 2023 14:09 S
[2023-09-02 13:15] LABS: Chol HDL Ratio 4.54 mg/dL (0.0-4.40); Cholesterol 209 mg/dL (0-200); HDL Cholesterol 46 mg/dL (60-100); LDL Cholesterol Calculated 141 mg/dL (50-129); LDL HDL Ratio 3.07 RATIO (0.00-3.22); Triglycerides 109 mg/dL (0-150)
--- NOTE | 2023-09-02 13:15 | USCV_ITS ---
Liberty Briones Age: 43 Gender: F : 1980 Exam Date: 09/02/2023 13:13 Ordering Phys: Diaz Minor M.D ([email or web address]) Technologist: MICHAEL Exam Location: [facility] [place] Indication: pre syncope BP: 118 / 70 HR: 73 Rhythm: Sinus Technical Quality: Adequate MEASUREMENTS (Male / Female) Normal Values 2D ECHO LV Diastolic Diameter PLAX 3.9 cm 4.2 - 5.9 / 3.9 - 5.3 cm IVS Diastolic Thickness 1.0 cm 0.6 - 1.0 / 0.6 - 0.9 cm IVS Systolic Thickness 1.3 cm LVPW Diastolic Thickness 1.5 cm 0.6 - 1.0 / 0.6 - 0.9 cm LVPW Systolic Thickness 1.6 cm LVOT Diameter 2.0 cm LV Ejection Fraction 2D Teich 60.3 % LV Ejection Fraction MOD 2C 57.8 % LV Ejection Fraction 2C AL 57.1 % LA Diameter 2.5 cm RA Systolic Volume 4C AL 14.5 ml RA Systolic Volume 4C MOD 14.0 ml LA Sys Volume AL 17.4 cm cubed LA Sys Volume Index AL 11.5 cm cubed/m squared Aorta at Sinotubular Diameter 2.0 cm IVC Diameter 1.8 cm M-MODE LA Ao Ratio MM 0.9 AV Cusp Separation MM 1.1 cm DOPPLER AV Peak Velocity 125.0 cm/s LVOT Peak Velocity 113.0 cm/s AV Area Cont Eq vti 2.7 cm squared AV Area Cont Eq pk 2.7 cm squared MV Peak Velocity 92.0 cm/s MV Area PHT 5.4 cm squared Mitral E to A Ratio 1.1 TR Peak Velocity 155.0 cm/s TR Peak Gradient 9.6 mmHg TR Mean Velocity 134.0 cm/s TR Mean Gradient 7.3 mmHg TR Velocity Time Integral 46.8 cm TV Peak E Velocity 72.0 cm/s Right Atrial Pressure 3.0 mmHg Pulmonary Artery Systolic Pressu 12.6 mmHg PV Peak Velocity 90.0 cm/s RV Ejection Time 0.3 s FINDINGS Left Ventricle Left ventricle is normal size. LV systolic function is normal with EF of 55-60%. No regional wall motion abnormalities are seen. Right Ventricle Normal in size and function Right Atrium Normal in size Left Atrium Normal in size Mitral Valve Structurally normal mitral valve. Trace mitral regurgitation. Aortic Valve Structurally normal aortic valve. No significant stenosis or regurgitation Tricuspid Valve Mild tricuspid regurgitation. Insufficient TR jet to calculate RVSP. Pulmonic Valve Not well visualized Pericardium Normal Aorta Normal in size IVC Appears to be normal CONCLUSIONS LV systolic function is normal with EF of 55-60% Trace mitral regurgitation Mild tricuspid regurgitation Compared to prior echocardiogram from 2020, no significant changes are seen Diaz Minor MD (Electronically Signed) Final Date: 13 September 2023 19:32 S
== END 2023-09-02 12:19 | disposition home or self-care (01) ==
LOC: RAD 12:20
PROVIDERS: Visit Provider Internal Medicine
DX: R55 Syncope and collapse (principal); R07.9 Chest pain, unspecified; R06.02 Shortness of breath; E78.00 Pure hypercholesterolemia, unspecified
CPT/HCPCS: 36415; 80061; 93306; 93880

== ENCOUNTER 2024-02-12 14:48 | Emergency (ER) | payer BC, MEDICAID, SELFPAY ==
--- NOTE | 2024-02-12 14:51 | ECG_ITS ---
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 Measurements Intervals [place] Rate: 90 P: 61 DC: 130 QRS: 63 QRSD: 95 T: 49 QT: 342 QTc: 419 Interpretive Statements SINUS RHYTHM POSSIBLE LEFT ATRIAL ENLARGEMENT [-0.1mV P-WAVE IN V1/V2] MODERATE ST DEPRESSION [0.05+ mV ST DEPRESSION] Compared to ECG 06/12/2020 19:37:07 ST (T wave) deviation now present Sinus bradycardia no longer present Electronically Signed On 02-16-2024 21:05:49 CABLE RESPOOLER by Cristine Recinos M.D. [email or web address]
[2024-02-12 14:55] VITALS: BP 148/91; PULSE 88; RESP 18; TEMP 36.8; O2SAT 99; BMI 18.5
--- NOTE | 2024-02-12 14:55 | XR_ITS ---
WS: [id number] Portable AP upright chest, 02/12/2024 Clinical Data: cp Comparison: Portable chest, 06/12/2020 Findings: No nodules, masses or effusions are seen. The heart is normal. The pulmonary vascularity is not increased. No pneumonia or pneumothorax is seen. XR/XR chest 1V portable [id number] Impression: Negative chest.
--- NOTE | 2024-02-12 14:56 | ECG_ITS ---
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 Measurements Intervals [place] Rate: 90 P: 61 PA: 130 QRS: 63 QRSD: 95 T: 49 QT: 342 QTc: 419 Interpretive Statements SINUS RHYTHM POSSIBLE LEFT ATRIAL ENLARGEMENT [-0.1mV P-WAVE IN V1/V2] MODERATE ST DEPRESSION [0.05+ mV ST DEPRESSION] Compared to ECG 06/12/2020 19:37:07 ST (T wave) deviation now present Sinus bradycardia no longer present Electronically Signed On 02-13-2024 21:36:19 JBOSS ARCHITECT by Cristine Recinos M.D. [id number]
[2024-02-12 16:00] LABS: Basophils # 0.1 10^3/uL (0.0-0.1); Basophils % 0.7 %; Eosinophils # 0.1 10^3/uL (0.0-0.8); Eosinophils % 0.7 %; Hematocrit 43.8 % (36-47); Lymphocytes # 1.1 10^3/uL (0.8-4.8); Lymphocytes % 15.8 %; Mean Corpuscular HGB Conc 32.9 g/dL (30-55); Mean Corpuscular Hemoglobin 28.2 pg (27-33); Mean Corpuscular Volume 85.7 fl (85-98); Mean Platelet Volume 11.4 fL (7.4-10.4); Monocytes # 0.2 10^3/uL (0.2-0.9); Monocytes % 3.3 %; Neutrophils # 5.58 10^3/uL (1.8-7.7); Neutrophils % 78.9 %; Nucleated Red Blood Cells % 0 %; Platelet Count 216 10^3/cmm (157-399); Red Blood Count 5.11 10^6/uL (3.85-5.65); Red Cell Distribution Width 12.8 % (12.1-15.1); White Blood Count 7.07 10^3/uL (3.29-11.43)
[2024-02-12 16:36] LABS: Troponin(5th) Baseline < 6 ng/L (0-10)
[2024-02-12 16:37] LABS: Alanine Aminotransferase 14 U/L (0-33); Albumin Level 4.5 g/dL (3.5-5.2); Alkaline Phosphatase 80 U/L (35-105); Aspartate Amino Transferase 21 U/L (0-32); Blood Urea Nitrogen 9 mg/dL (6-20); Calcium 8.9 mg/dL (8.5-10.5); Carbon Dioxide 27 mmol/L (22-29); Chloride 101 mmol/L (98-107); Creatinine Clr Calc Pharmacy 101.0691; Globulin 2.4 g/dL (1.3-4.6); Glomerular Filtration Rate 109.6 mL/min (90-130); Glucose 105 mg/dL (65-115); Lipase 17 U/L (13-60); Osmolality Calculated 285 mOsm/kg (285-295); Sodium 138 mmol/L (136-145); Total Bilirubin 0.3 mg/dL (0.15-1.2); Total Protein 6.9 g/dL (6.6-8.7)
[2024-02-12 16:54] LABS: Anion Gap 14.8 (5-19); Potassium 4.8 mmol/L (3.5-5.1)
--- NOTE | 2024-02-12 16:56 | ECG_ITS ---
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 Measurements Intervals [place] Rate: 71 P: 14 [place]: 100 QRS: 63 QRSD: 93 T: 42 QT: 365 QTc: 399 Interpretive Statements SINUS RHYTHM WITH SHORT WY INTERVAL MINIMAL ST DEPRESSION [0.025+ mV ST DEPRESSION] Compared to ECG 02/12/2024 14:53:00 Short [place] interval now present ST (T wave) deviation still present Electronically Signed On 02-16-2024 21:05:43 TANK TRUCK MILK RECEIVER by Cristine Recinos M.D. [id number]
--- NOTE | 2024-02-12 17:31 | W.ED.CHESTPA ---
HPI - Chest Pain General: Chief Complaint: Chest Pain Stated Complaint: CP Time Seen by Provider: 02/12/24 17:13 Source: patient Mode of arrival: ambulatory Limitations: no limitations History of Present Illness: Patient is a 43-year-old female with no personal cardiac history who is presenting to the emergency department with substernal chest pain beginning this morning after waking up. She states this has been intermittent throughout the day, mild, and feels like a burning sensation that radiates to her left chest. She states she thinks it is her anxiety or could potentially be gastrointestinal as she has had multiple workups for gastrointestinal pain recently, but became concerned due to it being over her left chest. She is not reporting any shortness of breath, states she occasionally has some palpitations. She has never had an outpatient cardiac workup done. States the pain does seem to be worsened after eating. No prior episodes of left-sided chest pain in the past. MD complaint: chest pain Onset (ago): hour(s) Timing of current episode: episodic Prior episodes: No Onset: after eating Pain location: substernal Pain radiation: other (Left chest) Severity: mild Quality: burning Exacerbating factors: eating Associated symptoms: Reports palpitations; Deny abdominal pain, dyspnea, fever(s), nausea or vomiting Risk Factors: Coronary artery disease risk factors: none Thoracic aortic dissection risk factors: none Related Data Home Medications Medication Instructions Recorded Confirmed magnesium oxide 400 mg PO DAILY 10/11/20 08/14/23 potassium gluconate 595 mg (99 mg) 595 mg PO DAILY 10/11/20 08/14/23 tablet Multi Vitamin PO 08/14/23 08/14/23 Allergies Allergy/AdvReac Type Severity Reaction Status Date / Time lisinopril Allergy ADR-Vomitin Verified 08/14/23 14:51 g morphine Allergy ADR-Vomitin Verified 08/14/23 14:51 g Review of Systems General: Reports: 10 or more systems reviewed and unremarkable except in HPI and below Const: Denies: fever(s), chills or fatigue Eyes: Denies: change in vision ENMT: Denies: throat pain, ear or mastoid pain or nasal discharge Card: Reports: chest pain and palpitations; Denies: swelling of feet/ankles or lightheadedness Resp: Denies: dyspnea, productive cough or wheezing GI: Denies: abdominal pain, nausea, vomiting, diarrhea or constipation : Denies: flank pain, difficulty voiding, dysuria or urinary frequency Musc: Denies: neck pain, back pain or joint pain Skin/Breast: Denies: rash Neuro: Denies: headache(s), numbness in extremities or weakness in extremities Psych: Reports: anxiety PFSH ED PFSH: Medical History Aftercare following surgery of the genitourinary system Surgical History S/P LEEP H/O laparoscopy Diagnostic laparoscopy.?? Lysis of adhesions.?? Fulguration of endometriotic lesions.? per Dr. Guerrero at [facility] 09/25/2017 H/O dilation and curettage x1 H/O: hysterectomy Laparoscopic assisted vaginal hysterectomy with right oophorectomy, lysis of adhesions and cystoscopy performed on 12/02/[address] Guerrero at [facility] History of delivery (~2000) History of tubal ligation (~2013) History of delivery (~2013) Performed with TUbal ligation Family History Mother Hypertension Hyperlipidemia Father Hypertension Hyperlipidemia Grandfather Diabetes Other Cancer Denies family history of CAD (coronary artery disease) Clotting disorder Dementia Psychiatric illness Chronic kidney disease (CKD) Suicide Anesthesia complication Bleeding disorder Family history of premature coronary artery disease Lung disease Stroke Social History Smoking and tobacco/nicotine status: current every day tobacco/nicotine user cigarettes Packs smoked per day: 0.5 Alcohol intake: never Substance/Drug Use: never Physical Exam Const: COMMON NORMALS: no acute distress and no limitations GENERAL APPEARANCE: cooperative, comfortable, well developed and anxious ORIENTATION/CONSCIOUSNESS: Yes awake HENMT: COMMON NORMALS: normocephalic, atraumatic and hearing grossly normal bilaterally HEAD & SCALP: normocephalic and atraumatic Eye: COMMON NORMALS: Equal, round and reactive pupils present, EOMs intact bilaterally and conjunctivae normal CONJUNCTIVA: Yes conjunctivae normal PUPIL: Yes Equal, round and reactive pupils present Neck/C-Spine: COMMON NORMALS: full ROM, supple and no JVD Resp: COMMON NORMALS: normal respiratory effort, No retractions, No use of accessory muscles and clear to auscultation bilaterally AUSCULTATION: clear to auscultation bilaterally Cardio: COMMON NORMALS: no JVD, regular rate, regular rhythm, No clicks present (Cardio), No murmurs present (Cardio) and No rub (Cardio) RATE: regular rate RHYTHM: regular rhythm GI: COMMON NORMALS: Normal to inspection, nondistended, normoactive bowel sounds present, Soft to palpation and non-tender AUSCULTATION: Yes normoactive bowel sounds PALPATION: Yes Soft to palpation RECTAL EXAM: deferred Extremity: COMMON NORMALS: normal to inspection, full ROM and capillary refill normal Psych: COMMON NORMALS: mental status grossly normal and Normal thought process present THOUGHT PROCESS: Normal thought process present Skin: COMMON NORMALS: no rashes or lesions noted GENERAL SKIN EXAM: no rashes or lesions noted Course Vital Signs: Vital signs: Vital Signs Temperature 98.3 F 02/12/24 14:55 Pulse Rate 88 02/12/24 14:55 Respiratory Rate 18 02/12/24 14:55 Blood Pressure 148/91 02/12/24 14:55 Pulse Oximetry 99 02/12/24 14:55 Oxygen Delivery Me thod Room Air 02/12/24 14:55 MDM - Chest Pain Medical Decision Making Patient presenting with chest pain, after workup this is likely noncardiac and potentially related to gastrointestinal issues of which she has a history of, and complicated by her anxiety which she admits she has a history of as well. Her troponin was negative, chest x-ray normal, EKG not demonstrate any arrhythmia or other acute findings. Rest of her lab work normal. She does take omeprazole, encouraged to continue taking this and closely follow-up with primary care for continued workup of gastrointestinal issues as well as outpatient cardiac workup to include echocardiogram or stress testing, I would think she would benefit from this as she has never had a history of these tests. For her pain, of which she is stating she has at this time, we will do a GI cocktail. Despite pain likely being noncardiac in nature, did give return precautions including any worsening of her pain, onset of shortness of breath, or other concerning signs or symptoms. She agrees with discharge home at this time, expressing relief that pain is not related to her heart. Lab Data 02/12/24 15:44 02/12/24 15:44 Radiology Impressions Chest X-Ray 02/12/24 14:55 Impression: Negative chest. Laboratory Results WBC 7.07 10^3/uL (3.29-11.43) 02/12/24 15:44 RBC 5.11 10^6/uL (3.85-5.65) 02/12/24 15:44 Hgb 14.40 g/dL (11.27-16.99) 02/12/24 15:44 Hct 43.8 % (36-47) 02/12/24 15:44 MCV 85.7 fl (85-98) 02/12/24 15:44 MCH 28.2 pg (27-33) 02/12/24 15:44 MCHC 32.9 g/dL (30-55) 02/12/24 15:44 RDW 12.8 % (12.1-15.1) 02/12/24 15:44 Plt Count 216 10^3/cmm (157-399) 02/12/24 15:44 MPV 11.4 fL (7.4-10.4) H 02/12/24 15:44 Neut % (Auto) 78.9 % 02/12/24 15:44 Lymph % (Auto) 15.8 % 02/12/24 15:44 Galax % (Auto) 3.3 % 02/12/24 15:44 Eos % (Auto) 0.7 % 02/12/24 15:44 Baso % (Auto) 0.7 % 02/12/24 15:44 Neut # (Auto) 5.58 10^3/uL (1.8-7.7) 02/12/24 15:44 Lymph # (Auto) 1.1 10^3/uL (0.8-4.8) 02/12/24 15:44 Galax # (Auto) 0.2 10^3/uL (0.2-0.9) 02/12/24 15:44 Eos # (Auto) 0.1 10^3/uL (0.0-0.8) 02/12/24 15:44 Baso # (Auto) 0.1 10^3/uL (0.0-0.1) 02/12/24 15:44 Nucleated RBC % (auto) 0 % 02/12/24 15:44 Nucleated RBCs # 0.0 /100WBC 02/12/24 15:44 Sodium 138 mmol/L (136-145) 02/12/24 15:44 Potassium 4.8 mmol/L (3.5-5.1) 02/12/24 15:44 Chloride 101 mmol/L (98-107) 02/12/24 15:44 Carbon Dioxide 27 mmol/L (22-29) 02/12/24 15:44 Anion Gap 14.8 (5-19) 02/12/24 15:44 BUN 9 mg/dL (6-20) 02/12/24 15:44 Creatinine 0.6 mg/dL (0.5-0.9) 02/12/24 15:44 GFR Calculation 109.6 mL/min (90-130) 02/12/24 15:44 Glucose 105 mg/dL (65-115) 02/12/24 15:44 Calculated Osmolality 285 mOsm/kg (285-295) 02/12/24 15:44 Calcium 8.9 mg/dL (8.5-10.5) 02/12/24 15:44 Total Bilirubin 0.3 mg/dL (0.15-1.2) 02/12/24 15:44 AST 21 U/L (0-32) 02/12/24 15:44 ALT 14 U/L (0-33) 02/12/24 15:44 Alkaline Phosphatase 80 U/L (35-105) 02/12/24 15:44 Troponin T Baseline < 6 ng/L (0-10) 02/12/24 15:44 Total Protein 6.9 g/dL (6.6-8.7) 02/12/24 15:44 Albumin 4.5 g/dL (3.5-5.2) 02/12/24 15:44 Globulin 2.4 g/dL (1.3-4.6) 02/12/24 15:44 Lipase 17 U/L (13-60) 02/12/24 15:44 All radiology interpretation(s) finalized by discharge Discharge Plan Discharge Patient Disposition: Home Clinical Impression: Chest pain, non-cardiac, Anxiety Condition: Stable Prescriptions: No Action magnesium oxide 400 mg magnesium capsule 400 mg PO DAILY potassium gluconate 595 mg (99 mg) tablet 595 mg PO DAILY Multi Vitamin PO Discharge Orders: Discharge ED (Routine); Ordered 02/12/24 Ordered By: Flash Leiva Patient Instructions: Chest Pain (ED) Activity Restrictions/Additional Instructions: Closely follow-up with primary care Keith Harris for further outpatient cardiac workup and continued workup for gastrointestinal issues. Continue taking your omeprazole. If you have persistence of chest pain, onset of other concerning symptoms like shortness of breath or palpitations, or any new concerns you may return to the emergency department for reevaluation. Coding Level of Care Code ED Java Golden Gate Developer for Michi Bo
[2024-02-12 17:40] VITALS: BP 133/91; PULSE 78; RESP 16; O2SAT 97
[2024-02-12 18:47] LABS: Troponin 5 2HR Delta 0.00001 ABS# (0-10)
== END 2024-02-12 17:42 | disposition home or self-care (01) ==
PROVIDERS: Emergency Medicine; Emergency Provider Physician Assistant
DX: R07.89 Other chest pain (principal); F41.9 Anxiety disorder, unspecified
CPT/HCPCS: 36415; 71045; 80053; 83690; 84484; 85025; 93005; 99285

== ENCOUNTER 2024-10-13 19:53 | Emergency (ER) | payer BC, MEDICAID, SELFPAY ==
--- OUTSIDE RECORDS SUMMARY | 2022-06-12 05:30 | XMS_ITS | Continuity of Care Document ---
Author Organization [facility] Address [address] [id number] [address] Phone Care Team Providers Care Residence Life Director Name Role Phone Chance Gupta DDS Unavailable Unavailable Procedures Procedure Date Limited Oral Evaluation Problem Focused Intraoral Periapical First Film Extraction, Erupted Tooth Or Exposed Chelo t (Elevati Advance Directives Directive Yes / No Effective Date File Name No Information Encounters Encounter Description Practice Location Reason(s) For Visit Diagnoses Date Provider Providers Copied on Encounter [facility], [id number], [id number], tel:[phone] [facility] No Information Candy Fletcher. [address] [place], [place], [id number], [place]. tel:[phone] Referring Provider: Chance Agrawal, [address] [place], [address]. tel:[phone] Family History Family Member Type Diagnosis Age At Onset No Information Payers Payer name Insurance type Covered constitution party ID Authoriza tion(s) D [employer] CI [id number] Social History Type Description Quantity Date Captured Comments Sex Female Smoking Status No Information Sexual Orientation Heterosexual Gender Identity Female Chief Complaint And Reason For Visit No Information Reason For Referral Reason For Referral No Information History Of Present Illness Encounter Date Complaint History Of Prese nt Illness No Information Functional Status Date Functional Assessmen t No Information Instructions Date Instruction Additional Infor mation No Information Assessments Type Assessment Date No Information Patient Care Teams Name Effective Dates (start - stop) Status Members No Information
--- OUTSIDE RECORDS SUMMARY | 2023-04-25 12:45 | XMS_ITS ---
Author Organization [facility] Address [address] [place] [address] Care Team Providers Care Counseling Services Manager Name Role Phone ( [facility] ), PHYSICIAN NOT IDENTIFIED Primary Care Provider Unavailable [facility] [place], [place] Unavailable Unavailable Rubin Aleman Unavailable [phone] REASON FOR VISIT 2, 3, 4, 5, 6, 7, 8, 9, 10, 11, 12, 13, 14, 15, 19. with Light sedation smoker Social History Sex Assigned At : Social History Observation Description Sex Assigned At Female Encounters Encounter Location Date Provider Diagnosis [address] [facility] [address] [place] [address] 04/25/2023 Rubin Aleman Plan Of Treatment No Information Progress Notes * Liberty BONNERDOB:[birth year] (44 yo F)Acc No.[id number]:04/25/2023 Patient: Liberty Manriquez Provider: Arya Aleman DDS :1980 A ge:42 Y S ex:Female Date:04/25/2023 Address:[address] [place], [place] [id number] Pcp:PHYSICIAN NOT IDENTIFIED ( [facility] ) Subjective: * Chief Complaints: * 2 , 3, 4, 5, 6, 7, 8, 9, 10, 11, 12, 13, 14, 15, 19. with Light sedation smoker * Electronic signature of Rajeev Aleman DDS on 10/13/2024 at 08:00 PM CDT Sign off status: Pending * Provider: Arya Aleman DDS Date: 0 04/25/2023 Generated for Jovita ramos/Rocky/Yamil on: 0 10/13/2024 08:00 PM CDT
--- OUTSIDE RECORDS SUMMARY | 2023-05-15 02:30 | XMS_ITS ---
Author Organization [facility] Address [address] [place] [address] Care Team Providers Care Clinical Operations Specialist Name Role Phone ( [facility] ), PHYSICIAN NOT IDENTIFIED Primary Care Provider Unavailable [facility] [place], [place] Unavailable Unavailable ObhaMary crossrose Unavailable [phone] Social History Sex Assigned At : Social History Observation Description Sex Assigned At Female Encounters Encounter Location Date Provider Diagnosis [facility] [address] [place] [address] 05/15/2023 Rigo Jackson Plan Of Treatment No Information Progress Notes * Liberty BONNERDOB:[birth year] (44 yo F)Acc No.[id number]:05/15/2023 Patient: Liberty Manriquez Provider: Kelly Jackson DDS :1980 A ge:43 Y S ex:Female Date:05/15/2023 Address:[address] [place], [place] [id number] Pcp:PHYSICIAN NOT IDENTIFIED ( [facility] ) * Electronic signature of Minnie Jackson on 10/13/2024 at 08:00 PM CDT Sign off status: Pending * Provider: Kelly Jackson DDS Date: 05/15/2023 Generated for Printi ng/Faxing/eTransmitting on: 0 10/13/2024 08:00 PM CDT
[2024-10-13 19:54] VITALS: BP 163/95; PULSE 100; RESP 18; TEMP 36.7; O2SAT 99; BMI 17.2
--- OUTSIDE RECORDS SUMMARY | 2024-10-13 20:00 | XMS_ITS | Encounter Summary ---
Author Organization [facility] Address [address] [place] [address] Phone Care Team Providers Care Oracle Adf Developer Name Role Phone Aurea Siddiqui Primary Care Provider [phone] Reason for Visit * Reason Comments Med Refill Encounter Details Date Type Department Care Team (Late st Contact Info) Description 05/03/2022 Refill [facility] [address] [place], [place] [phone] Aurea Siddiqui FNP [address] [place] [address] Severe episode of recurrent major depressive disorder, without psychotic features (CMS/HCC) Social History Tobacco Use Types Packs/Day Years Used Date Smoking Tobacco: Every Day Cigarettes 1 15 Smokeless Tobacco: Never Alcohol Use Standard Drinks/Week Comments Never 0 (1 standard drink = 0.6 oz pur e alcohol) PHQ-2 Answer Date Recorded Patient Health Questionnaire-2 Score 0 02/27/2022 Comments Unknown Sex and Gender Information Value Date Recorded Sex Assigned at Not on file Legal Sex Female 10:47 AM CDT Gender Identity Not on file Sexual Orientation Not on file documented as of this encounter Plan of Treatment Not on file documented as of this encounter Visit Diagnoses Diagnosis Severe episode of recurrent major depressive disorder, without psychotic features (CMS/HCC) documented in this encounter Care Teams Oracle Adf Developer Relationship Specialty Start Date End Date Aurea Siddiqui FNP [address] [place], [place] [phone] PCP - General Family Medicine 01/29/22 documented as of this encounter
--- OUTSIDE RECORDS SUMMARY | 2024-10-13 20:00 | XMS_ITS | Clinical Summary ---
Author Organization [facility] Address [address] [place] [id number] Phone Care Team Providers Care Supervisor [employer] Name Role Phone Aurea Siddiqui MELLY Primary Care Provider [phone] Allergies Active Allergy Reactions Criticality Noted Date Comments Lisinopril Hives Low 01/30/2022 Morphine Nausea/Vomiting Medium 01/30/2022 Medications meloxicam (Mobic) 15 mg tablet Take 1 tablet (15 mg total) by mouth 1 (one) time each day. 30 tablet 2 02/27/2022 Active sertraline (Zoloft) 100 mg tabletIndication s:Severe episode of recurrent major depressive disorder, without psychotic features (CMS/HCC) TAKE 1 TABLET(100 MG) BY MOUTH 1 TIME EACH DAY 30 tablet 10 05/03/2022 Active traZODone (Desyrel) 100 mg tabletIndication s:Severe episode of recurrent major depressive disorder, without psychotic features (CMS/HCC) TAKE 1 TABLET(100 MG) BY MOUTH AT NIGHT NEEDED FOR SLEEP 30 tablet 10 05/03/2022 Active Active Problems No known active problems Family History Medical History Relation Comments No Known Problems Brother No Known Problems Daughter Hypertension Father Breast cancer Maternal Grandmother Breast cancer Maternal Great-Grandmother Hypertension Mother Seizures Mother No Known Problems Son Relation Status Comments Brother Alive Daughter Alive Father Alive Maternal Grandmother Maternal Great-Grandmother Alive Mother Alive Son Alive Social History Tobacco Use Types Packs/Day Years [...] on file Sexual Orientation Not on file Last Filed Vital Signs Vital Sign Reading Time Taken Comments Blood Pressure 146/90 02/27/2022 2:10 PM JOURNEYMAN CARPENTER Pulse 74 02/27/2022 2:10 PM JOURNEYMAN CARPENTER Temperature 36.3 C (97.3 F) 02/27/2022 2:10 PM JOURNEYMAN CARPENTER Respiratory Rate 18 02/27/2022 2:10 PM JOURNEYMAN CARPENTER Oxygen Saturation 96% 02/27/2022 2:10 PM JOURNEYMAN CARPENTER Inhaled Oxygen Concentration - - Weight 48.9 kg (107 lb 12.8 oz) 02/27/2022 2:10 PM JOURNEYMAN CARPENTER Height 156.2 cm (5' 1.5 ) 02/27/2022 2:10 PM JOURNEYMAN CARPENTER Body Mass Index 20.04 02/27/2022 2:10 PM JOURNEYMAN CARPENTER Plan of Treatment Health Maintenance Due Date Last Done Comments MMR Vaccines (1 of 1 - Standard series) 1982 DTaP,Tdap,and Td Vaccines (5 - Tdap) 1988 06/11/2006, 10/12/1996, 01/27/1983, Additional history exists Varicella Vaccines (1 of 2 - 13+ 2-dose series) 1994 Depression Screening 1999 Social Drivers of Health (SDoH) 1999 Hepatitis B Vaccines (1 of 3 - 19+ 3-dose series) 2000 Pneumococcal Vaccine: 50+ Years (1 of 2 - PCV) 2000 Pneumococcal Vaccine (1 of 2 - PCV) 2000 Mammogram 02/07/2023 02/07/2022 COVID-19 Vaccine (1 - season) 2023 Influenza Vaccine (#1) 2024 Zoster Vaccines (1 of 2) 2031 RSV Vaccines (1 - 1-dose 75+ series) 2056 HIB Vaccines Aged Out No longer eligi ble based on patient's age to complete this topic HPV Vaccines Aged Out No longer eligi ble based on patient's age to complete this topic Hepatitis A Vaccines Aged Out No long er eligible based on patient's age to complete this topic IPV Vaccines Aged Out No longer eligi ble based on patient's age to complete this topic Meningococcal B Vaccine Aged Out No l onger eligible based on patient's age to complete this topic Meningococcal Vaccine Aged Out No subhash joanne eligible based on patient's age to complete this topic Rotavirus Vaccines Aged Out No longer eligible based on patient's age to complete this topic Procedures Procedure Name Priority Date/Time Associated Diagnosis Comments MAMMOGRAM BREAST SCREENING TOMOSYNTHESIS BILATERAL Routine 02/07/2022 3:11 PM JOURNEYMAN CARPENTER Encounter for screening mammogram for malignant neoplasm of breast from Last 3 Months or Most Recently Relevant to Health Maintenance Results * Mammogram breast screening tomosynthesis bilateral (02/07/2022 3:11 PM JOURNEYMAN CARPENTER) Anatomical Region Laterality Modality Breast Bilateral Mammography 02/07/2022 4:35 PM JOURNEYMAN CARPENTER Narrative 02/07/2022 4:36 PM JOURNEYMAN CARPENTER SCREENING MAMMOGRAM WITH CAD AND TOMOSYNTHESIS COMPARISON: Baseline examination. TECHNIQUE: Bilateral CC and MLO views were obtained with computer-aided diagnosis and tomosynthesis. FINDINGS: The breasts are extremely dense, which lowers the sensitivity of mammography. There is no mass, suspicious calcification or architectural distortion in either breast. IMPRESSION: No evidence of malignancy. Routine Screening Mammogram in 1 Year. BI-Rads 1 - Negative. Electronically signed on 02/07/2022 4:36 PM by: Davide Sierra MD Procedure Note Davide Sierra MD - 02/07/2022 SCREENING MAMMOGRAM WITH CAD AND TOMOSYNTHESIS COMPARISON: Baseline examination. TECHNIQUE: Bilateral CC and MLO views were obtained with computer-aideddiagnosis and tomosynthesis. FINDINGS: The breasts are extremely dense, which lowers the sensitivity ofmammography. There is no mass, suspicious calcification or architectural distortion ineither breast. IMPRESSION: No evidence of malignancy. Routine Screening Mammogram in 1 Year. BI-Rads 1 - Negative. Electronically signed on 02/07/2022 4:36 PM by: Davide Sierra MD Aurea PABLOP IMG BI PROCEDURES Final Resul t from Last 3 Months or Most Recently Relevant to Health Maintenance Insurance [id number] MEDICAID REPLACEMENT Care Teams Supervisor [employer] Products Relationship Specialty Start Date End Date Aurea Siddiqui FNP [address] [place] [phone] PCP - General Family Medicine 01/29/22
--- OUTSIDE RECORDS SUMMARY | 2024-10-13 20:01 | XMS_ITS | Clinical Summary ---
Author Organization [facility] Address [address] [facility] Attn: [place] [address] Care Team Providers Care Round Corner Cutter Operator Name Role Phone Unavailable Primary Care Provider Unavailabl e Allergies Active Allergy Reactions Criticality Noted Date Comments Lisinopril Hives High 01/30/2022 Morphine Nausea and Vomiting Medium 04/19/2021 Severe vomiting Medications hydroCHLOROthia zide 12.5 mg tablet Take 12.5 mg by mouth daily. Active ondansetron (ZOFRAN ODT) 4 mg Tablet, Rapid Dissolve Take 1 Tablet (4 mg) by mouth every 8 hours as needed for Nausea/Emesis . Dissolve tablet on top of tongue, then swallow with saliva. 10 Tablet 1 05/31/2023 Active traMADoL (Ultram) 50 mg tabletIndicatio ns:Abdominal wall seroma, initial encounter Take 1 Tablet (50 mg) by mouth every 6 hours as needed for Pain. 12 Tablet 06/08/2023 Active Active Problems Problem Noted Date Diagnosed Date Abdominal wall seroma 06/08/2023 Encounters Date Type Department Care Team Description 08/05/2024 Orders Only [facility] Gastroenterology- [address] [place] [address] Gerardo Soni MD Abdominal pain, unspecified abdominal location (Primary Dx) 07/14/2024 External Device Data STL ABSTRACTION Provider, Abstract from Last 3 Months Social History Tobacco Use Types Packs/Day Years Used Date Smoking Tobacco: Every Day Cigarettes Smokeless Tobacco: Never Tobacco Cessation:Ready to Q uit: No; Counseling Given: No Alcohol Use Standard Drinks/Week Comments Never 0 (1 standard drink = 0.6 oz pur e alcohol) Feeling Safe Answer Date Recorded Are you in a relationship wi th someone who hurts you emotionally and/or physically? 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 Gender Identity Not on file Sexual Orientation Not on file Last Filed Vital Signs Vital Sign Reading Time Taken Comments Blood Pressure 118/74 07/17/2023 2:10 PM CDT Pulse 82 07/17/2023 2:10 PM CDT Temperature 36.3 C (97.4 F) 07/17/2023 2:10 PM CDT Respiratory Rate 18 06/09/2023 5:00 AM CDT Oxygen Saturation 98% 07/17/2023 2:10 PM CDT Inhaled Oxygen Concentration - - Weight 50.8 kg (112 lb) 07/17/2023 2:10 PM CDT Height 156.2 cm (5' 1.5 ) 07/17/2023 2:10 PM CDT Body Mass Index 20.82 07/17/2023 2:10 PM CDT Plan of Treatment Upcoming Encounters Date Type Department Care Team (Late st Contact Info) Description 10/29/2024 3:30 PM CDT [facility] [address] [place] [address] Kay Barcenas NP [address] [facility] [address] [place] [address] Health Maintenance Due Date Last Done Comments HEPATITIS B VACCINES (1 of 3 - 19+ 3-dose series) 2000 HPV/Cotest (21-29) 2002 DTAP/TDAP/TD VACCINES (2 - Tdap) 06/12/2006 06/11/2006, 10/12/1996 CERVICAL CANCER SCREENING 2011 HPV/Cotest (30-65) 2011 PAP SMEAR 2011 BREAST CANCER SCREENING 02/07/2023 02/07/2022 INFLUENZA VACCINE (#1) 2024 HPV VACCINES Aged Out No longer eligi ble based on patient's age to complete this topic Medical Devices Implanted Type Area Petroleum Inspector Device Identifier Shelf Expiration Date Model / Serial / Lot Mesh Bard [id number] - Sn/A Implanted:Qty: 1 on 05/03/2023 by Paul Torrez DO at [facility] Mesh N/A: Groin BARD DAVOL 09/27/2027 [id number] / N/A / [id number] Description:mesh cut into tw o pieces and placed bilaterally Insurance [facility] MEDICAID RX [id number] Medicaid Advance Directives For more information, please contact: [phone] * Full Code (Latest Code Status on File) Date Activated Date Inactivated Comments 06/07/2023 10:07 PM 06/09/2023 3:06 PM * Full Code Date Activated Date Inactivated Comments 05/03/2023 1:39 PM 05/03/2023 5:13 PM * Full Code Date Activated Date Inactivated Comments 05/03/2023 10:10 AM 05/03/2023 1:39 PM * Full Code Date Activated Date Inactivated Comments 07/20/2021 11:38 AM 07/20/2021 4:06 PM
--- OUTSIDE RECORDS SUMMARY | 2024-10-13 20:01 | XMS_ITS | Patient Health Record ---
Author Organization [facility] Address [address] [place] [address] Care Team Providers Care Teleprinter Installer Name Role Phone ( [facility] ), PHYSICIAN NOT IDENTIFIED Primary Care Provider Unavailable [facility] [place], [place] Unavailable Unavailable Allergies Allergen (clinical drug ingredient) Drug/Non Drug Allergy documented on EMR Reaction Allergy Type Onset Date Status morphine Morphine Sulfate vomiting Drug Allergy Active Reason For Referral No Information Social History Sex Assigned At : Social History Observation Description Sex Assigned At Female Plan Of Treatment No Information Insurance Providers Payer Name Payer Address Payer Phone Subscriber Number Group Number Insured Name Patient Relationship to Insured Coverage Start Date Coverage End Date [employer] [address] [address] [place] [address] [id number] Liberty Briones Self - patient is the insured [employer] [address] [place] [address] [id number] Liberty Briones Self - patient is the insured Medical (General) History Medical History History ICD Code blood tranfusions hysterectomy caesarean section x2
--- OUTSIDE RECORDS SUMMARY | 2024-10-13 20:01 | XMS_ITS | Data Portability ---
Author Organization [facility] Keith Harris [facility], .[place]bi, [facility] Address [address] [address] Care Team Providers Care Supervisor Treating And Pumping Name Role Phone YARI SONI Primary Care Provider [phone] Assessment Encounter Date Assessment Date Assessment LastModified by Organization Details LastModified Time 11/05/2023 11/05/2023 She has consistent postprandial abdominal pain/ Nausea. We will check HIDA scan and an egd. Continues to have Reflux despite ppi. Not available 11/05/2023 14:00:18 12/09/2023 12/09/2023 She is doing better overall. HIDA scan is pending. No further changes needed. Not available 12/09/2023 16:08:08 Plan of Treatment Reminders Order Date Submit Date Provider Last Modified By Organization Details Last Modified Time Details Appointments None recorded. Lab alpha-gal ige, serum 2024 025 [facility], [address], [place], [address], 18:39:08 tissue transglutam inase iga Ab, serum 2024 025 [facility], [address], [place], [address], 18:39:10 Referral gastroenter ologist referral 2024 025 [facility] 2 [facility]onne , [address] [facility] [address], [place], [address], 5 12:55:52 EGD referral 2023 024 [email or web address] 2 Not available 4 13:19:57 Procedures upper endoscopy procedure (EGD) (PROC) 2023 024 asurface Not available 4 15:43:11 colonoscopy procedure (PROC) 2023 024 [email or web address] 2 Not available 4 13:20:20 Surgeries None recorded. Imaging XR, cervical spine, 2 or 3 view 2024 025 [email or web address] 2 [facility] ([facility]), [address] [place], [address], 5 15:16:35 NM, hepatobilia ry scan 2023 [email or web address] [facility] (Scheduling Orders), [address] [place], [address], 4 12:00:51 Medication Orders sertraline 25 mg tablet 2024 025 [facility], [address] [place], [address], 5 15:39:48 fluticasone propionate 50 mcg/actuati on nasal spray,suspe nsion 2024 025 [facility], [address] [place], [address], 5 09:24:38 Fioricet 50 mg-300 mg-40 mg capsule 2024 025 [facility], [address] [place], [address], 5 15:21:53 escitalopra m 10 mg tablet 2024 025 [facility], [address] [place], [address], 15:27:05 Linzess 145 mcg capsule [address] [facility], [address] [place], [address], 13:13:34 Patient TargetsNo targets recorded. Patient InstructionsNo instructions recorded. Reason for Referral EGD Referral for Nausea and vomiting Referring Physician: [facility], Encounter Date: 10/14/2023 User Experience Analyst Referral for Chronic abdominal pain Referring Physician: Yari Soni [facility], Encounter Date: 07/14/2024 Results Created Date Observation Date Name Description Value Unit Range Abnormal Flag Note LastModifiedBy Organization Detail LastModifiedTime 09/27/19 24 09/27/2023 CBC WBC 6.7 x10 4.0-10 .5 Not Available [facility] [address] [facility] [address], [place], [address], 09/27/2023 11:03:11 09/27/19 24 09/27/2023 CBC RBC 5.32 x10 3.50-5 .50 Not Available [facility] [address] [facility] [address], [place], [address], 09/27/2023 11:03:11 09/27/19 24 09/27/2023 CBC HGB 15.0 g/dL 12.0-1 6.0 Not Available [facility] [address] [facility] [address], [place], [address], 09/27/2023 11:03:11 09/27/19 24 09/27/2023 CBC HCT 44.6 % 37.0-4 7.0 Not Available [facility] [address] [facility] [address], [place], [address], 09/27/2023 11:03:11 09/27/19 24 09/27/2023 CBC MCV 83.8 fL 80.0-9 9.9 Not Available [facility] [address] [facility] [address], [place], [address], 09/27/2023 11:03:11 09/27/19 24 09/27/2023 CBC MCH 28.2 pg 27.0-3 2.0 Not Available [facility] [address] [facility] [address], [place], [address], 09/27/2023 11:03:11 09/27/19 24 09/27/2023 CBC MCHC 33.6 g/dL 32.0-3 6.0 Not Available [facility] [address] [facility] [address], [place], [address], 09/27/2023 11:03:11 09/27/19 24 09/27/2023 CBC RDW 13.6 % 11.5-1 4.5 Not Available [facility] [address] [facility] [address], [place], [address], 09/27/2023 11:03:11 09/27/19 24 09/27/2023 CBC plt 191.9 x10 140.0- 451.0 Not Available [facility] [address] [facility] [address], [place], [address], 09/27/2023 11:03:11 09/27/19 24 09/27/2023 CBC lymphocytes % 24.8 % 20.0-5 0.0 Not Available [facility] [address] [facility] [address], [place], [address], 09/27/2023 11:03:11 09/27/19 24 09/27/2023 CBC granulcytes % 64.6 % 30.0-7 0.0 Not Available [facility] [address] [facility] [address], [place], [address], 09/27/2023 11:03:11 09/27/19 24 09/27/2023 CBC monocytes % 6.2 % 2.0-16 .0 Not Available [facility] [address] [facility] [address], [place], [address], 09/27/2023 11:03:11 09/27/19 24 09/27/2023 CBC granulcytes# 4.3 x10 Not Helen ilable [facility] [address] [facility] [address], [place], [address], 09/27/2023 11:03:11 09/27/19 24 09/27/2023 CBC lymphocytes # 1.7 x10 Not Available [facility] [address] [facility] [address], [place], [address], 09/27/2023 11:03:11 09/27/19 24 09/27/2023 CBC monocytes # 0.4 x10 Not Avai lable [facility] [address] [facility] [address], [place], [address], 09/27/2023 11:03:11 09/27/19 24 09/27/2023 CMP (FEMA LE) glucose 91.0 mg/dL 60.0-9 9.0 Not Available [facility] [address] [facility], [place], [address], 09/27/2023 11:21:47 09/27/19 24 09/27/2023 CMP (FEMA LE) BUN (blood urea nitrogen) 10.0 mg/dL 10.0-2 6.0 Not Available [facility] [address] [facility], [place], [address], 09/27/2023 11:21:47 09/27/19 24 09/27/2023 CMP (FEMA LE) creatinine (serum) 0.7 mg/dL 0.4-1. 5 Not Available [facility] [address] [facility], [place], [address], 09/27/2023 11:21:47 09/27/19 24 09/27/2023 CMP (FEMA LE) BUN/creatini ne ratio 14.08 ratio Not Available [facility] [address] [facility] [address], [place], [address], 09/27/2023 11:21:47 09/27/19 24 09/27/2023 CMP (FEMA LE) eGFR calculated 96.0 Not Available [facility] [address] [address], [place], [address], 09/27/2023 11:21:47 09/27/19 24 09/27/2023 CMP (FEMA LE) total protein 7.7 g/dL 6.0-8. 5 Not Available [facility] [address] [facility] [address], [place], [address], 09/27/2023 11:21:47 09/27/19 24 09/27/2023 CMP (FEMA LE) total bilirubin 0.7 mg/dL 0.2-1. 3 Not Available [facility] [address] [address], [place], [address], 09/27/2023 11:21:47 09/27/19 24 09/27/2023 CMP (FEMA LE) albumin 4.6 g/dL 3.5-5. 5 Not Available [facility] [address] [address], [place], [address], 09/27/2023 11:21:47 09/27/19 24 09/27/2023 CMP (FEMA LE) globulin 3.[address] [facility] [address] [address], [place], [address], 09/27/2023 11:21:47 09/27/19 24 09/27/2023 CMP (FEMA LE) AST (SGOT) 26.0 U/L 0.0-46 .0 Not Available [facility] [address] [address], [place], [address], 09/27/2023 11:21:47 09/27/19 24 09/27/2023 CMP (FEMA LE) altv (SGPT) 15.0 U/L 13.0-6 9.0 normal Not Available [facility] [address] [address], [place], [address], 09/27/2023 11:21:47 09/27/19 24 09/27/2023 CMP (FEMA LE) A/G ratio 1.5 ratio Not Available [facility] [address] [address], [place], [address], 09/27/2023 11:21:47 09/27/19 24 09/27/2023 CMP (FEMA LE) ALP phos 77.0 U/L 30.0-1 40.0 normal Not Available [facility] [address] [address], [place], [address], 09/27/2023 11:21:47 09/27/19 24 09/27/2023 CMP (FEMA LE) calcium 10.0 mg/dL 8.4-10 .5 Not Available [facility] [address] [address], [place], [address], 09/27/2023 11:21:47 09/27/19 24 09/27/2023 CMP (FEMA LE) sodium 140.0 mmol/ L 136.0- 145.0 Not Available [facility] [address] [address], [place], [address], 09/27/2023 11:21:47 09/27/19 24 09/27/2023 CMP (FEMA LE) potassium 4.2 mmol/ L 3.5-5. 1 Not Available [facility] [address] [facility], [place], [address], 09/27/2023 11:21:47 09/27/19 24 09/27/2023 CMP (FEMA LE) chloride 107.0 mmol/ L 98.0-1 10.0 normal Not Available [facility] [address] [facility] [address], [place], [address], 09/27/2023 11:21:47 09/27/19 24 09/27/2023 CMP (FEMA LE) C02 27.0 mmol/ L 22.0-3 1.0 Not Available [facility] [address] [facility] [address], [place], [address], 09/27/2023 11:21:47 09/27/19 24 09/27/2023 CMP (FEMA LE) anion gap 6.0 calc Not Available [facility] [address] [facility] [address], [place], [address], 09/27/2023 11:21:47 09/27/19 24 09/27/2023 CMP (FEMA LE) osmolality 287.9 calc Not Available [facility] [address] [facility] [address], [place], [address], 09/27/2023 11:21:47 07/15/19 25 07/17/2024 ALPHA GAL PANEL beef (F27) IgE <0.10 kU/L normal Not Available [facility] [address] [place], [address], 07/17/2024 18:39:08 07/15/19 25 07/17/2024 ALPHA GAL PANEL class 0 Not Available [facility] [address] [place], [address], 07/17/2024 18:39:08 07/15/19 25 07/17/2024 ALPHA GAL PANEL woods (F88) IgE <0.10 kU/L normal Not Available [address] [address] [place], [address], 07/17/2024 18:39:08 07/15/19 25 07/17/2024 ALPHA GAL PANEL class 0 Not Available [address] [address] [place], [address], 07/17/2024 18:39:08 07/15/19 25 07/17/2024 ALPHA GAL PANEL pork (F26) IgE <0.10 kU/L normal Not Available [address] [address] [place], [address], 07/17/2024 18:39:08 07/15/19 25 07/17/2024 ALPHA GAL PANEL class 0 Not Available [address], [address], 07/17/2024 18:39:08 07/15/1907/17/2024 ALPHA GAL PANEL galactose alpha 1,3 galactose IgE <0.10 kU/L <0.10 Resul ts above 0.1 kU/L indic ate an aller gen-s pecif ic IgE sensi tizat ion to galac tose- a-1,3 -gala ctose , and such patie nts are at risk for delay ed aller gic react ions follo wing beef, pork, or woods consu mptio n. Circu latin g IgE antib odies may remai n undet ectab le despi te a convi ncing clini amanda histo ry becau se these antib odies may be direc sherlyn towar ds aller gens revea led or alter ed durin g indus trial proce ssing , cooki ng, or diges tion and there fore do not exist in the origi nal food for which the patie nt is teste d. Somet imes indiv idual s diagn osed with chron ic urtic aria may devel op IgE antib odies direc sherlyn again st human thyro globu fidelina. Such antib odies may cross -reac t with the bovin e thyro globu fidelina used in Immun oCAP( R) Aller gen o215, alpha -Gal, leadi ng to a false -posi tive test resul t. A defin itive diagn osis shoul d be based on the evalu ation of both clini amanda and labor atory findi ngs and not on any singl e diagn ostic metho d. Addit ional infor ramon evelyne can be found at http: //www .phad ia.co m Not Available [facility] [address], [place], [address], 07/17/2024 18:39:08 07/15/19 25 07/17/2024 INTER PRETA TION interpretati on Speci fic Level of Aller gen IGE Class kU/L Speci fic IGE Antib muriel ----- ----- ---- ----- ----- ----- ---- 0 <0.10 Absen t/Und etect able 0/1 0.10- 0.34 Very Low Level 1 0.35- 0.69 Low Level 2 0.70- 3.49 Moder ate Level 3 3.50- 17.4 High Level 4 17.5- 49.9 Very High Level 5 50-10 0 Very High Level 6 >100 Very High Level The clini amanda relev ance of aller gen resul ts of 0.10- 0.34 kU/L are undet ermin ed and inten ded for speci alist use. Aller gens denot ed with a inclu de resul ts using one or more edison te speci fic reage nts. In those cases , the test was devel oped and its edison tical perfo rmanc e joseph cteri stics have been deter mined by [facility]. It has not been clear ed or appro kari by the U.S. Food and Drug Admin istra tion. This assay has been valid ated pursu ant to the CLIA regul ation s and is used for clini amanda purpo ses. Not Available [facility] [address] [place], [address], 07/17/2024 18:39:10 07/15/19 25 07/17/2024 TISSU E TRANS GLUTA DYLAN E AB, IGA tissue transglutami nase Ab, IgA <1.0 U/mL Value Inter preta tion ----- ----- ----- ---- <15.0 Antib muriel not detec sherlyn > or = 15.0 Antib muriel detec sherlyn Not Available [facility] [address], [place], [address], 07/17/2024 18:39:10 10/01/19 24 10/01/2023 raul HEATH No observ ation record ed. [facility] [address] [place], [address], 10/07/2023 11:32:09 11/21/19 24 11/21/2023 upper endos copy proce dure (EGD) (PROC ) No observ ation record ed. dcrase Not Available 2023 08:56:22 06/10/19 25 06/09/2024 XR, cervi amanda spine , 2 or 3 view No observ ation record ed. [facility] [address] [place], [address], 06/15/2024 09:56:30 07/19/19 25 07/18/2024 XR, chest , 1 view No observ ation record ed. dcrase [facility] [address] [place], [address], 07/20/2024 08:18:43 07/19/19 25 07/18/2024 raul HEATH No observ ation record ed. dcrase [facility] [address] [place], [address], 07/20/2024 08:18:07 Result Notes None recorded. Problems Name Problem SNOMED Code Status Onset Date Resolution Date Notes Provider Name and Address Organization Details Recorded Time Epigastric pain 08513914 Active 2023 Flash Harrellell roque [facility] 13:31:53 Gastroesophage al reflux disease 537775248 Active 2023 Flash Giordano roque [facility] 13:31:56 Nausea and vomiting 00394302 Active 2023 Flash Giordano roque [facility] 13:32:07 Irritable bowel syndrome 44787448 Active 2023 Flash Giordano roque [facility] 13:32:01 Lower abdominal pain 44156241 Active 2023 Flash Giordano roque [facility] 13:32:04 Dental abscess 334152404 Active 2023 Flash Giordano roque [facility] 13:31:50 Neck pain 09655060 Active 2024 Flash Giordano roque [facility] 13:32:12 Headache 34510078 Active 2024 Flash Giordano roque [facility] 13:31:59 Allergic rhinitis 76680740 Active 2024 Flash nevarez [facility] 13:31:42 Anxiety 87284872 Active 2024 Flash Giordano roque [facility] 13:31:45 Abdominal pain 79759686 Active 2024 Yari Soni MD [address] [place] [address], [address], [facility] 5 15:32:59 Allergy to food 721072318 Active 2024 Yari Soni MD [address] [place], [address], [facility] 5 15:36:12 Chronic abdominal pain 801229596 Active 2024 Yari Soni MD [address] [place], [address], [facility] 5 15:36:36 Problem Notes None recorded. Procedures Surgical History Date Name Laterality Status Provider Name and Address Organization Details Recorded Time 2023 esophagogastroduodenoscopy completed MARIBELL LIGHT [facility] 4 15:42:12 2023 hernia repair completed [facility] 5 13:33:32 2013 section completed [facility] 4 13:14:21 2000 section completed [facility] 4 13:14:11 hysterectomy completed [facility] 5 13:33:06 Imaging Results None recorded. Procedure Notes None recorded. Medical Equipment None Reported. Allergies Allergen ID Allergen Name Allergen Category Reaction Reaction Severity Criticality Documentation Date Start Date Code Code System Note Provider Name and Address Organization Details Recorded Time 16282 morphine medicatio n vomiting Not available Not available 09/27/2023 7052 RxNorm BAKARI nevarez [facility] 4 10:17:06 42046 lisinopri l medicatio n Not available Not available Not available 09/27/2023 11972 RxNorm TISHSAKINA nevarez [facility], [facility] 4 10:17:12 Medications Name Sig Start Date Stop Date Status Note LastModified by Organization Details LastModified Time hydrocodo ne 5 mg-acetam inophen 325 mg tablet TAKE 1 TABLET BY MOUTH EVERY 4 HOURS NEEDED FOR PAIN . DO NOT EXCEED 6 PER 24 HOURS 09/26 completed Not Available Not Available Not Available ondansetr on HCl 4 mg tablet TAKE 1 TABLET BY MOUTH EVERY 6 HOURS NEEDED FOR NAUSEA active Not Available Not Available No t Available metronida zole 500 mg tablet TAKE 1 TABLET BY MOUTH EVERY 8 HOURS FOR 5 DAYS 09/26 completed Not Available Not Available Not Available ciproflox acin 500 mg tablet TAKE 1 TABLET BY MOUTH EVERY 12 HOURS FOR 5 DAYS 09/26 completed Not Available Not Available Not Available tramadol 50 mg tablet TAKE 1 TABLET BY MOUTH EVERY 6 HOURS NEEDED FOR PAIN 09/26 completed Not Available Not Available Not Available sertralin e 25 mg tablet Take 1 tablet every day by oral route. 2024 active Not Available Not Available Not Avai lable omeprazol e 20 mg capsule,d elayed release Take 1 capsule by mouth once daily 2023 active Not Available Not Available Not Avai lable ondansetr on 4 mg disintegr ating tablet DISSOLVE 1 TABLET IN MOUTH EVERY 8 HOURS NEEDED FOR NAUSEA AND VOMITING DISSOLVE TABLET ON TOP OF TONGUE, THEN SWALLOW WITH SALIVA 09/26 completed Not Available Not Available Not Available fluticaso ne propionat e 50 mcg/actua tion nasal spray,erlinda pension USE 1 SPRAY(S) IN EACH NOSTRIL ONCE DAILY active Not Available Not Available No t Available amoxicill in 875 mg-potass ium clavulana te 125 mg tablet TAKE 1 TABLET BY MOUTH EVERY 12 HOURS 11/04 completed Not Available Not Available Not Available escitalop brandon 10 mg tablet TAKE 1 TABLET BY MOUTH ONCE DAILY 07/14 completed Pt states that it made her very sweaty, sick, and dizzy. Not Available Not Available Not Available ezetimibe 10 mg tablet TAKE 1 TABLET BY MOUTH ONCE DAILY active Not Available Not Available No t Available Linzess 145 mcg capsule TAKE 1 CAPSULE BY MOUTH ONCE DAILY 11/04 completed Not Available Not Available Not Available Fioricet 50 mg-300 mg-40 mg capsule Take 1 capsule every 4 hours by oral route. 07/14 completed medicaid didn't approve. Not Available Not Available Not Available Vitals Date Recorded Body height Body mass index (BMI) Body weight Body temperature Respiratory rate Heart rate Oxygen saturation Oxygen saturation in Arterial blood by Pulse oximetry Systolic And Diastolic Provider Name and Address Organization Details Last Updated DateTime 5 156.21 cm 19 kg/m2 29923.1 2 g 97.8 [degF] 16 /min 71 /min 98 % 98 % 114/64 mm[Hg] Flash Giordano [facility] 5 09:13:07 Date Recorded Body height Body mass index (BMI) Body weight Body temperature Oxygen saturation Oxygen saturation in Arterial blood by Pulse oximetry Heart rate Systolic And Diastolic Provider Name and Address Organization Details Last Updated DateTime 5 156.21 cm 19.2 kg/m2 63438.8 1 g 97.6 [degF] 99 % 99 % 82 /min 122/80 mm[Hg] BAKARI TAYLOR [facility] 5 15:26:17 Date Recorded Body height Respiratory rate Body mass index (BMI) Body weight Body temperature Heart rate Oxygen saturation Oxygen saturation in Arterial blood by Pulse oximetry Systolic And Diastolic Provider Name and Address Organization Details Last Updated DateTime 4 156.21 cm 20 /min 19.8 kg/m2 42395.1 9 g 97.3 [degF] 84 /min 92 % 92 % 122/64 mm[Hg] GER CAMPO [facility] 4 16:08:26 Date Recorded Body height Body mass index (BMI) Body weight Respiratory rate Oxygen saturation Oxygen saturation in Arterial blood by Pulse oximetry Heart rate Body temperature Systolic And Diastolic Provider Name and Address Organization Details Last Updated DateTime 4 156.21 cm 19.8 kg/m2 34155.8 9 g 18 /min 97 % 97 % 84 /min 98.8 [degF] 126/76 mm[Hg] DASHAWN BRANDT [facility] 4 13:17:57 Date Recorded Body height Body mass index (BMI) Body weight Oxygen saturation Oxygen saturation in Arterial blood by Pulse oximetry Heart rate Respiratory rate Body temperature Systolic And Diastolic Provider Name and Address Organization Details Last Updated DateTime 4 156.21 cm 20.2 kg/m2 01746.7 8 g 99 % 99 % 64 /min 16 /min 98.1 [degF] 126/76 mm[Hg] DASHAWN BRANDT [facility] 4 15:51:42 Social History Question Answer Notes LastModified by [employer] Details LastModified Time Tobacco Smoking Status Current Every Day Smoker [facility] 09/27/2023 10:19:01 What Is Your Level Of Caffeine Consumption? Heavy Information not available 09/27/2023 What Type Of Diet Are You Following? REGULAR Information not available 09/27/2023 What Is Your Relationship Status? Information not available 09/27/2023 Sex: Unknown Functional Status Question Answer Note LastModified by [employer] Details LastModified Time Do you use any illicit or recreational drugs? No Information not available 09/27/2023 What is your level of alcohol consumption? None Information not available 09/27/2023 Are you currently employed? No Information not available 09/27/2023 Are you able to walk? YESWOREST Information not available 09/27/2023 Are you able to care for yourself? Yes Information n ot available 09/27/2023 Mental Status None recorded. Family History Relationship Description Onset Age of this Age Resolved Age Notes LastModified by Organization Details LastModified Time Father Hypertensive disorder [email or web address] Not available 2023 10:18:25 Medical History No medical history recorded. Gynecological HistoryNo gynecological history recorded. Obstetrics History GPAL:G 0 P 0 0 0 0 Immunizations Vaccine Type Date Status Note Provider Nam e and Address Organization Details Recorded Time MMR 4 completed DASHAWN RIKKI null, [facility] 11/05/2023 13:08:06 MMR 8 completed DASHAWN RIKKI null, [facility] 11/05/2023 13:08:06 polio, unspecified formulation 2 completed DASHAWN RIKKI null, [facility] 11/05/2023 13:08:06 polio, unspecified formulation 2 completed DASHAWN RIKKI null, [facility] 11/05/2023 13:08:06 polio, unspecified formulation 7 completed DASHAWN RIKKI null, [facility] 11/05/2023 13:08:06 Td (adult), 2 Lf tetanus toxoid, preservative free, adsorbed 7 completed DASHAWN RIKKI null, [facility] 11/05/2023 13:08:06 Td (adult), 2 Lf tetanus toxoid, preservative free, adsorbed 7 completed [facility] 11/05/2023 13:08:06 Hep B, adult 9 completed DASHAWN RIKKI null, [facility] 11/05/2023 13:08:06 DTaP 2 completed DASHAWN RIKKI null, [facility] 11/05/2023 13:08:06 DTaP 2 completed DASHAWN RIKKI null, [facility] 11/05/2023 13:08:06 DTaP 3 completed DASHAWN LOWERYY null, [facility] 11/05/2023 13:08:06 Hep A-Hep B 8 completed DASHAWN nevarez [facility], [place] 11/05/2023 13:08:06 Hep A-Hep B 8 completed DASHAWN nevarez [facility], [place] 11/05/2023 13:08:06 Past Encounters Encounter ID Performer Location Encounter Start Date Encounter Closed Date Diagnosis/Indication Diagnosis SNOMED-CT Code Diagnosis ICD10 Code Diagnosis Note [id number] Yari Soni MD [facility] ([facility]) [address] [place] [address] [phone] 09/27/2023 10:10:38 09/27/2023 11:52:41 Epigastric pain [id number] R10.13 Presented with epigastric pain mainly related to ulcers or possible gallbladde r. Will check labs today and schedule the patient for an ultrasound . Will also check for H. pylori. In the meantime we will go ahead and start a PPI. May need to consider EGD if testing is inconclusi ve. Gastroesop hageal reflux disease [id number] K21.9 [id number] Yari Soni MD [facility] ([facility]) [address] [place] [address] [phone] 10/01/2023 11:20:27 10/02/2023 09:43:43 [id number] Yari Soni MD [facility] ([facility]) [address] [place] [address] [phone] 10/14/2023 16:02:54 10/14/2023 16:33:51 Nausea and vomiting [id number] R11.2 Recommend the patient undergo EGD at this time. Irritable bowel syndrome [id number] K58.9 She has tried multiple over-the-c ounter medication s to help with her chronic constipati on and has been unsuccessf ul. Urged high-fiber diet and we will start Linzess to help her empty her bowels better as this may be contributi ng to some of her symptoms. Lower abdominal pain 155 [id number] R10.30 Given her recurrent constipati on issues and lower abdominal pain, we will proceed with colonoscop y consult as well. [id number] Cuba Woods MD [facility] ([facility]) [address] [place] [address] [phone] 11/05/2023 13:03:41 11/05/2023 14:09:56 Epigastric pain [id number] R10.13 Gastroesop hageal reflux disease [id number] K21.9 Lower abdominal pain 545 26965 R10.30 [id number] Cuba Woods MD [facility] ([facility]) [address] [place] [address] [phone] 12/09/2023 14:21:49 12/09/2023 16:10:03 Gastroesophageal reflux disease [id number] K21.9 Epigastric pain 23555684 R10.13 [id number] Yari Soni MD [facility] ([facility]) [address] [place] [address] [phone] 06/09/2024 09:02:27 06/09/2024 09:39:38 Neck pain 90304977 M54.2 Concerned her neck is contributi ng to headaches. We will obtain imaging today. Headache 16234138 R51.9 fiorcet as needed as we work this up further. Allergic rhinitis 642327 04 J30.9 Anxiety 50256885 F41.9 discussed medication s and she was open starting lexapro. [id number] Yari Soni MD [facility] ([facility]) [address] [place] [address] [phone] 07/14/2024 15:15:55 07/14/2024 15:56:36 Headache 18987957 R51.9 Fioricet and conservati ve measures have been helpful. Anxiety 27609897 F41.9 The patient wanted to try a different medication and we will proceed with the sertraline . Allergy to food [id number] 1 T78.1XXD Will check alpha gal and gluten sensitivit y to see if this is contributi ng to the patient's symptoms. Chronic ab dominal pain 831766671 R10.9 Given the fact that she continues to have persistent abdominal pain despite our interventi ons, I will go ahead and proceed with referral to GI as she may benefit from additional testing such as colonoscop y. Health Concerns Section Related Observation LastModified by Organization Detai ls LastModified Time None Recorded Concern Status LastModified by Organization Details LastModified Time None Recorded Advance Directives Directive None Recorded Payers Insurance Date Sequence Insurance Name Policy Number Policy Umana Covered Member ID Umana Member ID Guarantor Name 07/17/2024 1 [employer] (MEDICAID REPLACEMENT - HMO) [id number] Liberty Anselmo [id number] Liberty Anselmo Notes Date Note Type Note Provider Name and Address Organization Details Recorded Time 10/14/2023 text/html This is a 43-yea r-old female that comes in today for follow-up. The patient underwent imaging and no abnormality was noted. Continues to have a significant upper abdominal pain with nausea and vomiting. Patient also states that she has been having lower abdominal pain and persistent constipation. She has never had endoscopy done. Has a history of multiple surgeries on her abdomen in the past. Yari Soni MD [address] [place] [address], [phone], [facility] 10/15/2023 11:39:56 11/05/2023 text/html Colonoscopy ScreeningReported bypatient.GI Symptoms:no diarrhea; no rectal bleeding;abdominal pain;constipation;decr ease in bowel movements;harder or firmer stools Associated Symptoms:no fever; no vomiting;decreased appetite;nausea Context:no prior examination Family History:no colon cancer The patient presents today at the request of Dr. Soni for evaluation and discussion of colonoscopy and EGD due to abdominal pain, heartburn, unintentional weight loss, constipation. The patient denies any recent persistent diarrhea, bloody or dark tarry stools, or mucusy stools. Problems with anesthesia in the past: NONE Family History of Colon cancers: NONE Blood Thinners: NONE Co-morbidities: Cuba Woods MD [address] [place] [address], [phone], [facility] 11/05/2023 14:03:49 12/09/2023 text/html Colonoscopy ScreeningReported bypatient.GI Symptoms:no diarrhea; no rectal bleeding;abdominal pain;constipation;decr ease in bowel movements;harder or firmer stools Associated Symptoms:no fever; no vomiting;decreased appetite(starting to improve per pt);nausea Context:no prior examination Family History:no colon cancer Cuba Woods MD [address] [place] [address], [phone], [facility], [place]. 12/09/2023 16:08:34 06/09/2024 text/html Patient here tod for f/up headaches. Patient states that she had a recent fall while visiting her daughter in [place], and has noticed an increase in the frequency of the headaches since the fall. She also wants to discuss some nausea and abdominal discomfort for the past several months. She has decreased appetite, and weight loss. Pt also states that her anxiety has been really high as of late, and would like to discuss options for that. Yari Soni MD [address] [place] [address], [phone], [facility], [facility] 06/14/2024 10:14:37 07/14/2024 text/html Abdominal PainRe ported bypatient.Location:gen eralized Quality:bloating;cramp ing;aching;dull Severity:worse Duration:constant Associated Symptoms:constipation; decreased appetite;dysuria; uterine cramping. This is a 44-year-old female that comes in today for follow-up. Patient continues to have significant abdominal pain. Patient reports bloating, cramping, and constipation. Patient has not noticed any specific aggravating factors. She has not noticed any specific foods that seem to cause her more issues. Patient states that she did not do well with the Lexapro and thus stopped the medication and she is struggling with her anxiety. Yari Soni MD [address] [place] [address], [phone], [facility], [facility] 07/16/2024 09:35:17 OBGyn Episode No OBEpisode recorded.
--- OUTSIDE RECORDS SUMMARY | 2024-10-13 20:01 | XMS_ITS | Clinical Summary ---
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 Name Role Phone Unavailable Primary Care Provider Unavailabl e Social History Tobacco Use Types Packs/Day Years Used Date Smoking Tobacco: Never Assessed Comments Unknown Sex and Gender Information Value Date Recorded Sex Assigned at Not on file Legal Sex Female 10:09 AM CDT Gender Identity Not on file Sexual Orientation Not on file Plan of Treatment Health Maintenance Due Date Last Done Comments DTAP/TDAP/TD VACCINES (1 - Tdap) 2000 HEPATITIS B VACCINES (1 of 3 - 19+ 3-dose series) 2000 HPV/Cotest (21-29) 2002 CERVICAL CANCER SCREENING 2011 HPV/Cotest (30-65) 2011 PAP SMEAR 2011 BREAST CANCER SCREENING 2021 INFLUENZA VACCINE (#1) 2024 HPV VACCINES Aged Out No longer eligi ble based on patient's age to complete this topic
--- NOTE | 2024-10-13 20:14 | XRR_ITS ---
PROCEDURE INFORMATION: Exam: XR Abdomen Exam date and time: 10/13/2024 8:27 PM Age: 44 years old Clinical indication: Constipation; Prior surgery; Surgery date: 6+ months; Surgery type: Hernia hyst ; Additional info: Abd pain TECHNIQUE: Imaging protocol: Radiologic exam of the abdomen. Views: Frontal supine view of the abdomen. 1 View. COMPARISON: CT abdomen pelvis w con* [id number] 06/07/2023 2:42 PM FINDINGS: Gastrointestinal tract: Moderate to severe constipation without bowel dilation to indicate obstruction. Bones/joints: Unremarkable. XR/XR KUB [id number] IMPRESSION: Moderate to severe constipation without bowel dilation to indicate obstruction.
[2024-10-13 20:17] LABS: Hematocrit 44.9 % (36-47); Hemoglobin 14.30 g/dL (11.27-16.99); Mean Corpuscular HGB Conc 31.8 g/dL (30-55); Mean Corpuscular Hemoglobin 28.1 pg (27-33); Mean Corpuscular Volume 88.2 fl (85-98); Nucleated Red Blood Cells % 0 %; Platelet Count 199 10^3/cmm (157-399); Red Blood Count 5.09 10^6/uL (3.85-5.65); White Blood Count 7.21 10^3/uL (3.29-11.43)
[2024-10-13 20:34] LABS: Alanine Aminotransferase 11 U/L (0-33); Albumin Level 4.5 g/dL (3.5-5.2); Alkaline Phosphatase 87 U/L (35-105); Anion Gap 16.7 (5-19); Aspartate Amino Transferase 18 U/L (0-32); Blood Urea Nitrogen 10 mg/dL (6-20); Calcium 9.4 mg/dL (8.5-10.5); Carbon Dioxide 27 mmol/L (22-29); Chloride 100 mmol/L (98-107); Creatinine Clr Calc Pharmacy 86.5706; Globulin 2.8 g/dL (1.3-4.6); Glucose 115 mg/dL (65-115); Lipase 22 U/L (13-60); Osmolality Calculated 290 mOsm/kg (285-295); Potassium 3.7 mmol/L (3.5-5.1); Sodium 140 mmol/L (136-145); Total Protein 7.3 g/dL (6.6-8.7)
--- NOTE | 2024-10-13 20:37 | W.ED.ABDPA2 ---
HPI - Abdominal Pain General: Chief Complaint: Abdominal Pain Stated Complaint: ABD Pain Time Seen by Provider: 10/13/24 19:58 Source: patient Mode of arrival: ambulatory Limitations: no limitations History of Present Illness: 44-year-old female with history of chronic abdominal pain states she has been having some increased pain over the last 2 to 3 weeks. States she has had chronic GI issues constipation states she does feel like she is constipated. She has a GI appointment scheduled on October 29 she denies any vomiting diarrhea she has been taking Colace with little relief Associated Symptoms: Reports constipation; Denies chills, diarrhea, dysuria, fever(s), nausea and vomiting Related Data Home Medications ?Medication ?Instructions ?Recorded ?Confirmed magnesium oxide 400 mg PO DAILY 10/11/20 06/29/24 Multi Vitamin PO 08/14/23 06/29/24 fluticasone propionate 50 2 spray intranasal DAILY 06/29/24 06/29/24 mcg/actuation nasal spray,suspension (Flonase Allergy Relief) Previous Rx's ?Medication ?Instructions ?Recorded ezetimibe 10 mg tablet (Zetia) 10 mg PO DAILY #90 tabs 06/29/24 polyethylene glycol 3350 17 gram 17 g PO DAILY PRN constipation #14 10/13/24 oral powder packet (Miralax) ea Allergies Allergy/AdvReac Type Severity Reaction Status Date / Time lisinopril Allergy ADR-Vomitin Verified 06/29/24 13:14 g morphine Allergy ADR-Vomitin Verified 06/29/24 13:14 g Review of Systems Const: Denies: fever(s), chills, body aches or change in appetite ENMT: Denies: throat pain or dental pain Card: Denies: chest pain Resp: Denies: dyspnea GI: Reports: abdominal pain and constipation; Denies: nausea, vomiting or diarrhea : Denies: dysuria Musc: Denies: neck pain or back pain Skin/Breast: Denies: rash Neuro: Denies: headache(s) PFSH ED PFSH: Medical History Aftercare following surgery of the genitourinary system Surgical History S/P LEEP H/O laparoscopy Diagnostic laparoscopy.?? Lysis of adhesions.?? Fulguration of endometriotic lesions.? per Dr. Guerrero at [facility] 09/25/2017 H/O dilation and curettage x1 H/O: hysterectomy Laparoscopic assisted vaginal hysterectomy with right oophorectomy, lysis of adhesions and cystoscopy performed on 12/02/[address] Guerrero at [facility] History of delivery (~2000) History of tubal ligation (~2013) History of delivery (~2013) Performed with TUbal ligation Family History Mother Hypertension Hyperlipidemia Father Hypertension Hyperlipidemia Grandfather Diabetes Other Cancer Denies family history of CAD (coronary artery disease) Clotting disorder Dementia Psychiatric illness Chronic kidney disease (CKD) Suicide Anesthesia complication Bleeding disorder Family history of premature coronary artery disease Lung disease Stroke Social History Smoking and tobacco/nicotine status: current every day tobacco/nicotine user cigarettes Packs smoked per day: 0.5 Alcohol intake: never Substance/Drug Use: never Physical Exam Const: COMMON NORMALS: no acute distress, patient oriented x3 and healthy appearing HENMT: COMMON NORMALS: normocephalic and atraumatic HEAD & SCALP: normocephalic and atraumatic Neck/C-Spine: COMMON NORMALS: full ROM and supple Chest: COMMONS NORMALS: normal inspection of the chest Resp: COMMON NORMALS: normal respiratory effort Cardio: COMMON NORMALS: regular rate, regular rhythm and No murmurs present (Cardio) RATE: regular rate RHYTHM: regular rhythm GI: COMMON NORMALS: Normal to inspection, nondistended, normoactive bowel sounds present, Soft to palpation, non-tender and no masses PALPATION: Yes Soft to palpation Extremity: COMMON NORMALS: normal to inspection and full ROM Neuro: COMMON NORMALS: patient oriented x3, moves all extremities and no focal motor deficits Psych: COMMON NORMALS: mental status grossly normal, Normal thought process present and cooperative THOUGHT PROCESS: Normal thought process present Skin: COMMON NORMALS: no rashes or lesions noted and no wounds GENERAL SKIN EXAM: no rashes or lesions noted Course Vital Signs: Vital signs: Vital Signs Temperature 98.0 F 10/13/24 19:54 Pulse Rate 100 10/13/24 19:54 Respiratory Rate 18 10/13/24 19:54 Blood Pressure 163/95 10/13/24 19:54 Pulse Oximetry 99 10/13/24 19:54 Oxygen Delivery Me thod Room Air 10/13/24 19:54 MDM - Abdominal Pain Medical Decision Making Patient presents with abdominal pain likely from constipation exam blood work here is normal did give a dose of lactulose we will start on MiraLAX she has follow-up PCP return if worsening Medical Records I reviewed the patient's medical records. Lab Data I reviewed the patient's lab results. 10/13/24 20:09 10/13/24 20:09 Labs/Radiology: Laboratory Results WBC 7.21 10^3/uL (3.29-11.43) 10/13/24 20:09 RBC 5.09 10^6/uL (3.85-5.65) 10/13/24 20:09 Hgb 14.30 g/dL (11.27-16.99) 10/13/24 20:09 Hct 44.9 % (36-47) 10/13/24 20:09 MCV 88.2 fl (85-98) 10/13/24 20:09 MCH 28.1 pg (27-33) 10/13/24 20:09 MCHC 31.8 g/dL (30-55) 10/13/24 20:09 RDW 12.1 % (12.1-15.1) 10/13/24 20:09 Plt Count 199 10^3/cmm (157-399) 10/13/24 20:09 MPV 10.5 fL (7.4-10.4) H 10/13/24 20:09 Neut % (Auto) 60.3 % 10/13/24 20:09 Lymph % (Auto) 31.1 % 10/13/24 20:09 Clare % (Auto) 5.5 % 10/13/24 20:09 Eos % (Auto) 2.2 % 10/13/24 20:09 Baso % (Auto) 0.8 % 10/13/24 20:09 Neut # (Auto) 4.34 10^3/uL (1.8-7.7) 10/13/24 20:09 Lymph # (Auto) 2.2 10^3/uL (0.8-4.8) 10/13/24 20:09 Clare # (Auto) 0.4 10^3/uL (0.2-0.9) 10/13/24 20:09 Eos # (Auto) 0.2 10^3/uL (0.0-0.8) 10/13/24 20:09 Baso # (Auto) 0.1 10^3/uL (0.0-0.1) 10/13/24 20:09 Nucleated RBC % (auto) 0 % 10/13/24 20:09 Nucleated RBCs # 0.0 /100WBC 10/13/24 20:09 Sodium 140 mmol/L (136-145) 10/13/24 20:09 Potassium 3.7 mmol/L (3.5-5.1) 10/13/24 20:09 Chloride 100 mmol/L (98-107) 10/13/24 20: Carbon Dioxide 27 mmol/L (22-29) 10/13/24 20:09 Anion Gap 16.7 (5-19) 10/13/24 20: BUN 10 mg/dL (6-20) 10/13/24 20:09 Creatinine 0.6 mg/dL (0.5-0.9) 10/13/24 20:09 GFR Calculation 109.1 mL/min (90-130) 10/13/24 20:09 Glucose 115 mg/dL (65-115) 10/13/24 20: Calculated Osmolality 290 mOsm/kg (285-295) 10/13/24 20: Calcium 9.4 mg/dL (8.5-10.5) 10/13/24 20:09 Total Bilirubin 0.3 mg/dL (0.15-1.2) 10/13/24 20:09 AST 18 U/L (0-32) 10/13/24 20:09 ALT 11 U/L (0-33) 10/13/24 20:09 Alkaline Phosphatase 87 U/L (35-105) 10/13/24 20:09 Total Protein 7.3 g/dL (6.6-8.7) 10/13/24 20:09 Albumin 4.5 g/dL (3.5-5.2) 10/13/24 20:09 Globulin 2.8 g/dL (1.3-4.6) 10/13/24 20:09 Lipase 22 U/L (13-60) 10/13/24 20:09 HCG, Qual Negative (Negative) 10/13/24 20:09 XR interpretation done by ED provider, pending radiology final review ED provider radiology interpretation(s): X-ray KUB constipation Discharge Plan Discharge Patient Disposition: Home Clinical Impression: Abdominal pain, Constipation Condition: Stable Prescriptions: New polyethylene glycol 3350 [Miralax] 17 gram powder in packet 17 g PO DAILY PRN (Reason: constipation) Qty: 14 0RF No Action magnesium oxide 400 mg magnesium capsule 400 mg PO DAILY Multi Vitamin PO fluticasone propionate [Flonase Allergy Relief] 50 mcg/actuation spray,suspension 2 spray intranasal DAILY Rx Instructions: administer into each nostril ezetimibe [Zetia] 10 mg tablet 10 mg PO DAILY Qty: 90 3RF Discharge Orders: Discharge ED (Routine); Ordered 10/13/24 Ordered By: Samir Curran Referrals: Gerardo Soni MD [Primary Care Provider, Family Practice] - 4-7 days Discharge Diet: Advance as tolerated Discharge Activity: Resume usual activity Patient Instructions: Constipation (ED), Abdominal Pain (ED) Print Language: Mozambican Coding Level of Care Code ED Skilled Nursing Case Manager for Michi Bo
[2024-10-13 20:42] LABS: HCG, Serum Qual Negative (Negative)
[2024-10-13] MEDS: lactulose oral liq 20 gm/30 mL UDC 30 GM PO (21:03)
--- NOTE | 2024-10-13 21:10 | PC.NURSE ---
pt refused 2 meds, Dr. Curran notified and okayed.
[2024-10-13 21:11] VITALS: BP 125/89; PULSE 91; O2SAT 99
== END 2024-10-13 21:11 | disposition home or self-care (01) ==
PROVIDERS: Emergency Provider Emergency Medicine; PCP Family Medicine
DX: K59.09 Other constipation (principal); R10.9 Unspecified abdominal pain; F17.210 Nicotine dependence, cigarettes, uncomplicated
CPT/HCPCS: 36415; 74018; 80053; 83690; 84703; 85025; 99283; 99284; J9999

== ENCOUNTER → 2024-12-23 09:10 | Outpatient (BNVA) | payer BC, MEDICAID, SELFPAY | PROVIDERS: PCP Family Medicine; Visit Provider Internal Medicine Cardiovascular Disease | DX: R07.9 Chest pain, unspecified (principal) | CPT/HCPCS: 93005 ==

== ENCOUNTER 2025-01-07 12:31 | Outpatient (CLI) | payer BC, MEDICAID, SELFPAY ==
[2025-01-07 12:49] VITALS: BMI 20.7
--- NOTE | 2025-01-07 12:50 | USCV_ITS ---
Stress Echo Liberty Briones Age: 44 Gender: F : 1980 Exam Date: 01/07/2025 13:00 Ordering Phys: Bj Chang MD ([email or web address]) Technologist: Exam Location: [facility] Indication: CP Rhythm: Sinus Patient History: HTN, Palpitations Cardiac Medications: Atorvastatin 20mg QD Medications in past 24 hours: Contrast: Stress Results Protocol: Grant Total dose(mL): Exercise Duration (min:sec): 10:02 METS: 13.5 Resting HR: 80 Resting BP: 114 / 61 Peak HR: 171 Peak BP: 156 / 81 Max Predicted HR: 177 97 % Max Predicted HR Target HR: 150 Double Product: 17275 Stress Summary: The patient's target heart rate was achieved BP Response: Normal Reason for Termination: Test terminated after reaching target heart rate (85% max predicted) Cardiac Symptoms: Short of Breath ECG Analysis Resting ECG: Stress ECG: Arrhythmia: MEASUREMENTS (Male/Female) Normal Values FINDINGS Baseline: Normal left ventricular ejection fraction, EF estimated to be 60%. There is no wall motion abnormality At peak exercise level: Augmentation of cavity was good no new wall motion abnormality noted Recovery: Uneventful no wall motion abnormality noted CONCLUSIONS Echocardiographic portion of the stress echo was not suggestive of ischemia. EKG segment will be documented separately. Sarthak Lott MD (Electronically Signed) Final Date: 08 January 2025 13:55 S
--- NOTE | 2025-01-07 12:50 | ECG_ITS ---
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 Interpretive Statements EXERCISE STRESS TEST EXERCISE DATA: The patient was exercised by Grant protocol. Baseline heart rate was 77 beats per minute. Baseline blood pressure was 114/61 millimeters of mercury. Maximal predicted heart rate was 177 beats per minute. Maximum heart rate achieved was 171 which was 96% of the maximum predicted heart rate. Maximum blood pressure was 153/70 millimeters of mercury. Total exercise time was 10 minutes and 2 seconds. Maximum METs achieved was 13.5. The reason for ending the test was maximal effort achieved. The patient complained of shortness of breath during the stress test, which then resolved at the end of the test. ELECTROCARDIOGRAM: BASELINE: Showed sinus rhythm, normal axis, no significant ST-T changes at the baseline noted. [] EXERCISE: At the peak exercise level, [] No significant ST-T changes suggestive of ischemia noted. [] RECOVERY: During the recovery period, heart rate dropped appropriately. No significant ST-T changes in the recovery suggestive of ischemia noted. [] CONCLUSION: 1. Exercise capacity is excellent 2. Heart rate response was appropriate 3. Blood pressure response was appropriate 4. Symptoms not suggestive of ischemia. 5. EKG portion of stress test is not suggestive of ischemia. Echo stress test will be documented separately Electronically Signed On 01-16-2025 20:20:40 CDT by Diaz Minor M.D. [email or web address]
[2025-01-07 13:19] VITALS: BP 106/54; PULSE 98
== END 2025-01-07 12:32 | disposition home or self-care (01) ==
LOC: CDL 12:33
PROVIDERS: PCP Family Medicine; Visit Provider Internal Medicine Cardiovascular Disease
DX: R07.9 Chest pain, unspecified (principal)
CPT/HCPCS: 93017; 93350